=== PATIENT | male | born 1950 | race Caucasian/White ===

== ENCOUNTER 2016-09-18 20:38 | Inpatient (IN) | payer OTHER, MEDICARE ==
[~2016-09-18] VITALS: Ht 152.4 cm; Wt 85.9 kg
[~2016-09-18 20:38] MED LIST: ACCU-CHEK; ADULT LOW DOSE81 M1 PO; AMLODIPINE BES2.5 MG PO; AMLODIPINE BESY10 MG PO; AMLODIPINE BESYL5 MG PO; ASPIR 8181 M1 PO; ASPIR-LOW81 MG PO; ASPIR-TRIN325 M1 PO; ASPIRIN81 M2 PO; ATARAX,VISTARIL50 MG PO; ATORVASTATIN CA80 MG PO; BAYER ASPIRIN325 M1 PO; BAYER CHEWABLE81 MG PO; BREO ELLIPTA I1 EACH IH; CILOSTAZOL50 MG PO; CLEOCIN150 MG PO; CLEOCIN300 MG PO; CLINDAMYCIN HC300 MG PO; CLOPIDOGREL75 MG PO; COLACE100 MG PO; COMBIVENT200 INHALA IH; DOXYCYCLINE HY100 M1 PO; DULCOLAX5 MG PO; Diabeta,Micronase PO; ENDOCET 5-3251 EACH PO; FENOFIBRATE134 M1; FENOFIBRATE134 M1 PO; FENOFIBRATE134 MG PO; FEROSUL325 MG PO; FERROUS GLUCON240 MG PO; FISH OIL 1,0001 EAC7 PO; FISH OIL 1,2001 EAC4 PO; FISH OIL 1,2001 EAC5 PO; FISH OIL CONC1 EACH PO; FISH OIL300 MG PO; FISH OIL500 MG PO; FLEXERIL10 MG PO; GLIPIZIDE XL5 MG PO; GLIPIZIDE5 MG PO; GLUCOPHAGE1000 M1 PO; GLUCOPHAGE1000 MG PO; GLUCOTROL XL2.5 MG PO; GLUCOTROL5 MG PO; HUMALOG100 UNIT/1 SC; HUMULIN N100 UNITS/ SC; HUMULIN N300 UNIT/3 SC; HYDROCODON-ACE1 EAC7 PO; IMDUR30 MG PO; IMDUR60 MG PO; IRON256 MG PO; IRON325 M1 PO; IRON325 MG PO; ISOSORBIDE; ISOSORBIDE MONO30 MG PO; ISOSORBIDE MONO60 MG PO; Imdur PO; JANUVIA100 MG PO; JANUVIA25 M1 PO; KENALOG,ARISTOC80 G1 TP; LANTUS 3 M100 UNITS/ SC; LANTUS 3 M100 UNITS1 SC; LANTUS100 UNIT/1 SQ; LASIX20 MG PO; LEVEMIR FL100 UNIT/1 SC; LEVEMIR FL100 UNITS/ SC; LEVEMIR100 UNIT/2 SC; LEVOFLOXACIN750 MG PO; LEVOTHYROXINE75 MCG PO; LIPITOR80 MG PO; LISINOPRIL10 MG; LISINOPRIL10 MG PO; LISINOPRIL2.5 MG PO; LISINOPRIL5 MG PO; LO-DOSE ASPIRIN81 M1 PO; LOFIBRA134 MG PO; LOPRESSOR25 MG PO; LOPRESSOR50 MG PO; LORTAB 5-325 M1 EACH PO; LOSARTAN POTAS100 MG PO; LOSARTAN POTASS50 MG PO; LOW DOSE ASPIRI81 M2 PO; Levaquin PO; Lopressor PO; MAG-OXIDE400 MG PO; MAGNESIUM250 M1 PO; MAGOX 400400 MG PO; MECLIZINE HCL12.5 M1 PO; MEDROL DOSEPAK4 MG PO; METFORMIN HCL1000 M1; METFORMIN HCL1000 MG PO; METOPROLOL SUCC25 MG; METOPROLOL SUCC25 MG PO; METOPROLOL SUCC50 MG PO; METOPROLOL TART25 MG PO; METOPROLOL TART50 MG PO; Motrin PO; NITROSTAT,NITR0.4 M1 SL; NITROSTAT0.4 MG SL; NOHOMEMEDS; NORCO 5/3251 TABLET PO; NOVOLIN N100 UNIT/1 SQ; NOVOLIN N100 UNITS/ SC; NOVOLIN R (UNI1 UNIT SC; NOVOLIN,HU100 UNITS1 SC; NOVOLOG PE100 UNITS/ SC; Nitrostat,NitroQuick SL; PANTOPRAZOLE SO40 MG PO; PERCOCET 5/31 TABLET PO; PERFECT IRON25 MG PO; PLAVIX75 MG PO; PREDNISONE10 MG PO; PREDNISONE20 MG PO; PRINIVIL10 MG PO; PROAIR HFA8.5 GM IH; PROTONIX40 MG PO; Plavix PO; PriLOSEC PO; RANEXA500 MG PO; RAYOS2 MG PO; SIMVASTATIN20 M1 PO; SIMVASTATIN20 MG; SIMVASTATIN20 MG PO; SIMVASTATIN40 MG PO; SOFTCLIX1 EAC2; SPIRIVA1 INHALATI; SPIRIVA1 INHALATI IH; THERAGRAN1 TABLET PO; TRAMADOL HCL50 MG PO; TRILIPIX135 MG PO; TUDORZA PRESS400 MCG IH; Tylenol Regular Stre PO; VENTOLIN HFA18 GM IH; VITAMIN D-32000 UNI2 PO; VITAMIN D1000 INTUN PO; VITAMIN D31000 UNI2 PO; VITAMIN D31000 UNIT PO; ZESTRIL,PRINIVI10 MG PO; ZESTRIL10 MG PO; ZESTRIL2.5 MG PO; ZOCOR20 MG PO; ZOCOR40 MG PO; ZOFRAN4 MG PO; ZYVOX600 MG PO; Zestril,Prinivil PO; Zocor PO
[2016-09-18 22:42] LABS: HEMATOCRIT 34.5 % (38.0-50.0); MCH 29.6 PG (29.0-34.0); MCHC 33.9 G/DL (30.0-36.0); MCV 87.3 FL (86-99); MEAN PLAT.VOLUME 9.9 uM^3 (9.0-12.4); PLATELET COUNT 310 K/uL (156-360); RBC DIS.WIDTH-CV 13.6 % (11.8-14.6); RBC DIS.WIDTH-SD 42.2 % (39-53); RED BLOOD COUNT 3.95 M/uL (4.00-5.50)
[2016-09-18 22:47] LABS: CHLORIDE 101 mEq/L (99-109); POTASSIUM 4.2 mEq/L (3.7-5.4); SODIUM 136 mEq/L (136-147)
[2016-09-18 22:49] LABS: GLUCOSE 309 mg/dL (70-99)
[2016-09-18 22:50] LABS: WHITE BLOOD COUNT 14.4 K/uL (4.1-10.2)
[2016-09-18 22:51] LABS: ANION GAP 11 MEQ/L (2-14)
[2016-09-18 22:53] LABS: GFR ESTIMATE (CALCULATED) 50 mL/min/
[2016-09-18 22:54] LABS: UREA NITROGEN (BUN) 19 mg/dL (9-23)
[2016-09-19 00:11] LABS: TOTAL BILIRUBIN 0.6 mg/dL (0.0-1.0)
[2016-09-19 00:12] LABS: ALKALINE PHOSPHATASE 24 IU/L (3-129)
[2016-09-19 00:14] LABS: TROP-I INTERPRETATION NEGATIVE; TROPONIN-I < 0.01 ng/mL (0.0-0.30)
[2016-09-19 00:15] LABS: DIRECT BILIRUBIN 0.2 mg/dL (0.0-0.3)
[2016-09-19 00:16] LABS: LIPASE 9 U/L (1.0-51.0)
[2016-09-19 00:25] LABS: INFLUENZA A VIRAL ANTIGEN NEGATIVE; INFLUENZA B VIRAL ANTIGEN NEGATIVE
[2016-09-19 16:00] VITALS: BP 95/55
[2016-09-19 17:10] VITALS: BP 120/72
[2016-09-19 23:06] VITALS: BP 121/56
[2016-09-20 02:02] VITALS: BP 110/56
[2016-09-20 02:58] LABS: BASE EXCESS 0.4 mEq/L (-3 to +3); BICARBONATE 24.6 mEq/L (22-26); CARBOXY HGB 1.2 % (0-5); MCH 29.6 PG (29.0-34.0); MCHC 33.9 G/DL (30.0-36.0); MCV 87.3 FL (86-99); METHEMOGLOBIN 0.9 % (0-1.5); PCO2 37 mm Hg (35-45); PLATELET COUNT 300 K/uL (156-360); PO2 335 mm Hg (80-100); RBC DIS.WIDTH-CV 13.6 % (11.8-14.6); RBC DIS.WIDTH-SD 42.1 % (39-53); RED BLOOD COUNT 3.78 M/uL (4.00-5.50); SITE LR; WHITE BLOOD COUNT 10.9 K/uL (4.1-10.2); pH 7.43 (7.35-7.45)
[2016-09-20 02:59] LABS: COMMENTS - BLOOD GASES A+C+; DEVICE NRBM; FI02 100 %
[2016-09-20 03:09] LABS: CHLORIDE 102 mEq/L (99-109); D-DIMER ELISA 0.32 mg/L FEU (< 0.57); POTASSIUM 4.2 mEq/L (3.7-5.4); SODIUM 135 mEq/L (136-147)
[2016-09-20 03:12] LABS: ANION GAP 14 MEQ/L (2-14)
[2016-09-20 03:15] LABS: GFR ESTIMATE (CALCULATED) 54 mL/min/
[2016-09-20 03:16] LABS: UREA NITROGEN (BUN) 19 mg/dL (9-23)
[2016-09-20 03:17] LABS: GLUCOSE 426 mg/dL (70-99)
[2016-09-20 03:19] LABS: TROP-I INTERPRETATION NEGATIVE; TROPONIN-I < 0.01 ng/mL (0.0-0.30)
[2016-09-20 08:14] LABS: POINT-OF-CARE METER ID UU14174216; POINT-OF-CARE USER ID NUTSLF44
[2016-09-20 09:21] LABS: TROP-I INTERPRETATION NEGATIVE; TROPONIN-I 0.06 ng/mL (0.0-0.30)
[2016-09-20 10:06] VITALS: BP 159/65
[2016-09-20 11:35] LABS: POINT-OF-CARE METER ID UU13113698; POINT-OF-CARE USER ID NUTSLF44
[2016-09-20 13:00] VITALS: BP 144/62
[2016-09-20 14:30] LABS: TROP-I INTERPRETATION NEGATIVE; TROPONIN-I 0.05 ng/mL (0.0-0.30)
[2016-09-20 15:38] VITALS: BP 131/61
[2016-09-20 16:58] LABS: POINT-OF-CARE METER ID UU13113698; POINT-OF-CARE USER ID NUTSLF44
[2016-09-20 20:00] VITALS: BP 138/65
[2016-09-20 21:24] LABS: POINT-OF-CARE METER ID UU13113698
[2016-09-20 23:31] LABS: TROP-I INTERPRETATION NEGATIVE; TROPONIN-I 0.03 ng/mL (0.0-0.30)
[2016-09-20 23:55] VITALS: BP 145/65
[2016-09-21 04:07] VITALS: BP 144/65
[2016-09-21 07:55] LABS: POINT-OF-CARE METER ID UU13113698
[2016-09-21 08:45] VITALS: BP 137/63
[2016-09-21 08:48] LABS: TROP-I INTERPRETATION NEGATIVE; TROPONIN-I 0.02 ng/mL (0.0-0.30)
[2016-09-21 11:34] LABS: POINT-OF-CARE METER ID UU13113698
[2016-09-21 12:38] VITALS: BP 116/56
[2016-09-21 16:26] LABS: POINT-OF-CARE METER ID UU13113698
[2016-09-21 16:45] VITALS: BP 133/64
[2016-09-21 20:50] VITALS: BP 154/65
[2016-09-21 21:00] LABS: POINT-OF-CARE METER ID UU14174216
[2016-09-22] VITALS (9 sets, daily range): BP systolic 117–165; BP diastolic 58–98
[2016-09-22 16:08] LABS: POINT-OF-CARE METER ID UU14174216
[2016-09-22 21:50] LABS: POINT-OF-CARE METER ID UU13113698
[2016-09-23 03:57] VITALS: BP 150/69
[2016-09-23 07:28] VITALS: BP 139/64
[2016-09-23 07:45] LABS: POINT-OF-CARE USER ID NUTSLF44
[2016-09-23] MEDS ORDERED: ZITHROMAX250 MG PO (09:27)
[2016-09-23] MEDS ORDERED: PREDNISONE10 MG PO (09:27)
[2016-09-23] MEDS ORDERED: CEFTIN500 MG PO (09:27)
[2016-09-23 11:21] LABS: POINT-OF-CARE USER ID NUTSLF44
[2016-09-23 11:26] VITALS: BP 121/64
== END 2016-09-23 13:17 | disposition home or self-care (01) | DRG 190 ==
LOC: EME 20:38 → 4EAST 09-19 02:37 → 5EAST 09-19 02:37 → 4EAST 09-19 02:37 → EDOF 09-19 02:37 → 5EAST 09-19 17:01 → 4EAST 09-20 03:06
PROVIDERS: Emergency Medicine; Internal Medicine; Internal Medicine Cardiovascular Disease
DX: J44.0 Chronic obstructive pulmonary disease with (acute) lower respiratory infection (principal); J18.9 Pneumonia, unspecified organism; J44.1 Chronic obstructive pulmonary disease with (acute) exacerbation; I69.351 Hemiplegia and hemiparesis following cerebral infarction affecting right dominant side; E11.9 Type 2 diabetes mellitus without complications; I10 Essential (primary) hypertension; E78.5 Hyperlipidemia, unspecified; I25.118 Atherosclerotic heart disease of native coronary artery with other forms of angina pectoris; I73.9 Peripheral vascular disease, unspecified; I35.0 Nonrheumatic aortic (valve) stenosis; Z88.1 Allergy status to other antibiotic agents; Z95.5 Presence of coronary angioplasty implant and graft; Z87.891 Personal history of nicotine dependence; Z79.02 Long term (current) use of antithrombotics/antiplatelets; Z79.82 Long term (current) use of aspirin
CPT/HCPCS: 36600; 71010; 71020; 74176; 80048; 80076; 82803; 82948; 83605; 83690; 83880; 84484; 85027; 85379; 87040; 87502; 93005; 94640; 94640 76; 94799; 99202; 99281; 99285; J0456; J0696; J1650; J1815; J1956; J2270; J2405; J2920; J2930; J7030; J7050

== ENCOUNTER 2016-10-27 18:41 | Inpatient (IN) | payer OTHER, MEDICARE ==
[~2016-10-27] VITALS: Ht 152.4 cm; Wt 82.5 kg
[~2016-10-27 18:41] MED LIST changes: +CEFTIN500 MG PO; +ZITHROMAX250 MG PO
[2016-10-27 19:58] LABS: HEMATOCRIT 36.9 % (38.0-50.0); MCH 29.6 PG (29.0-34.0); MCHC 33.1 G/DL (30.0-36.0); MCV 89.6 FL (86-99); MEAN PLAT.VOLUME 9.5 uM^3 (9.0-12.4); PLATELET COUNT 393 K/uL (156-360); RBC DIS.WIDTH-CV 13.8 % (11.8-14.6); RBC DIS.WIDTH-SD 44.1 % (39-53); RED BLOOD COUNT 4.12 M/uL (4.00-5.50); WHITE BLOOD COUNT 7.9 K/uL (4.1-10.2)
[2016-10-27 20:08] LABS: CHLORIDE 103 mEq/L (99-109); POTASSIUM 4.5 mEq/L (3.7-5.4); SODIUM 140 mEq/L (136-147)
[2016-10-27 20:10] LABS: GLUCOSE 315 mg/dL (70-99)
[2016-10-27 20:12] LABS: ANION GAP 11 MEQ/L (2-14)
[2016-10-27 20:14] LABS: GFR ESTIMATE (CALCULATED) 59 mL/min/
[2016-10-27 20:15] LABS: UREA NITROGEN (BUN) 16 mg/dL (9-23)
[2016-10-27 20:20] LABS: TROP-I INTERPRETATION NEGATIVE; TROPONIN-I 0.02 ng/mL (0.0-0.30)
[2016-10-28 01:02] VITALS: BP 144/60
[2016-10-28 04:43] VITALS: BP 107/59
[2016-10-28 06:10] LABS: MCH 29.3 PG (29.0-34.0); MCHC 32.7 G/DL (30.0-36.0); MCV 89.7 FL (86-99); MEAN PLAT.VOLUME 9.9 uM^3 (9.0-12.4); PLATELET COUNT 342 K/uL (156-360); RBC DIS.WIDTH-CV 14.1 % (11.8-14.6); RED BLOOD COUNT 3.68 M/uL (4.00-5.50); WHITE BLOOD COUNT 7.3 K/uL (4.1-10.2)
[2016-10-28 06:49] LABS: ALKALINE PHOSPHATASE 17 IU/L (3-129); ANION GAP 13 MEQ/L (2-14); CHLORIDE 101 MEQ/L (99-109); GFR ESTIMATE (CALCULATED) > 59 mL/min/; POTASSIUM 4.7 MEQ/L (3.7-5.4); SAMPLE HEMOLYSIS CHECK 0; SAMPLE ICTERIC CHECK 0; SAMPLE LIPEMIA CHECK 0; SODIUM 136 MEQ/L (136-147); TOTAL BILIRUBIN 0.3 MG/DL (0.0-1.0); UREA NITROGEN (BUN) 19 mg/dL (9-23)
[2016-10-28 06:52] LABS: GLUCOSE 430 mg/dL (70-99)
[2016-10-28 07:23] VITALS: BP 116/56
[2016-10-28 08:24] LABS: POINT-OF-CARE METER ID UU13113831
[2016-10-28 11:53] VITALS: BP 116/58
[2016-10-28 12:48] LABS: POINT-OF-CARE METER ID UU13113831
[2016-10-28 16:10] VITALS: BP 112/57
[2016-10-28 17:35] LABS: POINT-OF-CARE METER ID UU13113831
[2016-10-28 21:00] VITALS: BP 113/78; BP 13/78
[2016-10-28 21:25] LABS: POINT-OF-CARE METER ID UU13113700
[2016-10-29] VITALS (7 sets, daily range): BP systolic 100–136; BP diastolic 51–68
[2016-10-29 12:37] LABS: HEMATOCRIT 33.7 % (38.0-50.0); MCH 29.8 PG (29.0-34.0); MCHC 33.8 G/DL (30.0-36.0); MEAN PLAT.VOLUME 9.8 uM^3 (9.0-12.4); PLATELET COUNT 417 K/uL (156-360); RBC DIS.WIDTH-SD 44.1 % (39-53); RED BLOOD COUNT 3.83 M/uL (4.00-5.50); WHITE BLOOD COUNT 18.5 K/uL (4.1-10.2)
[2016-10-29 12:46] LABS: CHLORIDE 101 mEq/L (99-109); D-DIMER ELISA 0.23 mg/L FEU (< 0.57); POTASSIUM 4.7 mEq/L (3.7-5.4); SODIUM 138 mEq/L (136-147)
[2016-10-29 12:48] LABS: GLUCOSE 296 mg/dL (70-99)
[2016-10-29 12:49] LABS: ANION GAP 14 MEQ/L (2-14)
[2016-10-29 12:52] LABS: GFR ESTIMATE (CALCULATED) 46 mL/min/
[2016-10-29 12:53] LABS: UREA NITROGEN (BUN) 30 mg/dL (9-23)
[2016-10-29 17:13] LABS: POINT-OF-CARE METER ID UU13113700
[2016-10-29 22:22] LABS: POINT-OF-CARE METER ID UU14162513
[2016-10-30 04:29] VITALS: BP 123/53
[2016-10-30 06:54] LABS: EOSINOPHIL (%) 0 % (0-5); HEMATOCRIT 32.7 % (38.0-50.0); IMMATURE GRANULOCYTE (%) 0.8 % (0.0-0.7); IMMATURE GRANULOCYTE COUNT 0.1 K/uL; LYMPHOCYTE COUNT 1.2 K/uL (1.0-2.8); MCH 29.8 PG (29.0-34.0); MCHC 33.3 G/DL (30.0-36.0); MCV 89.3 FL (86-99); MEAN PLAT.VOLUME 10.2 uM^3 (9.0-12.4); MONOCYTE (%) 9.4 % (3-12); MONOCYTE COUNT 1.3 K/uL (0-0.8); NEUTROPHIL (%) 81.1 % (45-76); NEUTROPHIL COUNT 11.5 K/uL (1.8-6.4); PLATELET COUNT 345 K/uL (156-360); RBC DIS.WIDTH-CV 14.3 % (11.8-14.6); RBC DIS.WIDTH-SD 46.9 % (39-53); RED BLOOD COUNT 3.66 M/uL (4.00-5.50); WHITE BLOOD COUNT 14.1 K/uL (4.1-10.2)
[2016-10-30 07:17] LABS: Estimated Average Glucose 174 mg/dL (70-123); HEMOGLOBIN A1c (GLYCOHEMOGLOB) 7.7 % HGB (Below 5.7)
[2016-10-30 07:34] LABS: ALKALINE PHOSPHATASE 16 IU/L (3-129); ANION GAP 8 MEQ/L (2-14); CHLORIDE 99 MEQ/L (99-109); GFR ESTIMATE (CALCULATED) > 59 mL/min/; GLUCOSE 172 mg/dL (70-99); POTASSIUM 4.2 MEQ/L (3.7-5.4); SAMPLE HEMOLYSIS CHECK 0; SAMPLE ICTERIC CHECK 0; SAMPLE LIPEMIA CHECK 0; SODIUM 137 MEQ/L (136-147); TOTAL BILIRUBIN 0.3 MG/DL (0.0-1.0); UREA NITROGEN (BUN) 27 mg/dL (9-23)
[2016-10-30 07:55] VITALS: BP 113/56
[2016-10-30 08:37] LABS: POINT-OF-CARE METER ID UU13113700
[2016-10-30 12:10] VITALS: BP 99/56
[2016-10-30 12:15] LABS: POINT-OF-CARE METER ID UU13113831
[2016-10-30 16:13] VITALS: BP 121/59
[2016-10-30 19:43] VITALS: BP 138/89
[2016-10-30 21:31] LABS: POINT-OF-CARE METER ID UU13113831
[2016-10-30 23:20] VITALS: BP 131/62
[2016-10-31 03:33] VITALS: BP 137/65
[2016-10-31 04:40] LABS: POINT-OF-CARE METER ID UU14162513
[2016-10-31 08:38] LABS: POINT-OF-CARE METER ID UU13113700
[2016-10-31 09:32] VITALS: BP 139/65
[2016-10-31 11:22] VITALS: BP 112/56
[2016-10-31 11:54] LABS: POINT-OF-CARE METER ID UU13113700
[2016-10-31 16:20] VITALS: BP 167/69
[2016-10-31 20:13] VITALS: BP 120/62
[2016-11-01] VITALS (7 sets, daily range): BP systolic 106–141; BP diastolic 54–78
[2016-11-02 04:03] VITALS: BP 130/67
[2016-11-02 08:56] VITALS: BP 119/60
[2016-11-02 12:30] VITALS: BP 125/60
[2016-11-02] MEDS ORDERED: PREDNISONE10 MG PO (15:19)
[2016-11-02] MEDS ORDERED: LEVOFLOXACIN750 MG PO (15:19)
[2016-11-02 15:38] VITALS: BP 123/58
== END 2016-11-02 17:55 | disposition home or self-care (01) | DRG 190 ==
LOC: EME 18:41 → EDOF 23:32 → 5WEST 23:32 → EDOF 23:32 → 5WEST 10-28 00:42 → 2EAST 10-31 15:46
PROVIDERS: Hospitalist; Internal Medicine
DX: J44.1 Chronic obstructive pulmonary disease with (acute) exacerbation (principal); J96.01 Acute respiratory failure with hypoxia; J44.0 Chronic obstructive pulmonary disease with (acute) lower respiratory infection; J20.9 Acute bronchitis, unspecified; I69.351 Hemiplegia and hemiparesis following cerebral infarction affecting right dominant side; E78.00 Pure hypercholesterolemia, unspecified; I25.10 Atherosclerotic heart disease of native coronary artery without angina pectoris; I10 Essential (primary) hypertension; E11.65 Type 2 diabetes mellitus with hyperglycemia; K21.9 Gastro-esophageal reflux disease without esophagitis; E03.9 Hypothyroidism, unspecified; E78.5 Hyperlipidemia, unspecified; E66.9 Obesity, unspecified; M06.9 Rheumatoid arthritis, unspecified; J45.909 Unspecified asthma, uncomplicated; G89.29 Other chronic pain; Z95.5 Presence of coronary angioplasty implant and graft; Z79.02 Long term (current) use of antithrombotics/antiplatelets; Z79.82 Long term (current) use of aspirin; Z79.4 Long term (current) use of insulin; Z68.35 Body mass index [BMI] 35.0-35.9, adult; Z88.1 Allergy status to other antibiotic agents; Z87.891 Personal history of nicotine dependence; I25.2 Old myocardial infarction
CPT/HCPCS: 71020; 71275; 80048; 80053; 82948; 83036; 84484; 85025; 85027; 85379; 93005; 93971; 94010; 94640; 94640 76; 94644; 94799; 99202; 99281; 99285; G0378; J1100; J1644; J1815; J2930; J7512

== ENCOUNTER 2016-11-14 19:58 | Inpatient (IN) | payer OTHER, MEDICARE ==
[~2016-11-14] VITALS: Ht 152.4 cm; Wt 89.1 kg
[2016-11-14 20:59] LABS: MCH 29.5 PG (29.0-34.0); MCHC 33.9 G/DL (30.0-36.0); MCV 86.8 FL (86-99); MEAN PLAT.VOLUME 9.3 uM^3 (9.0-12.4); PLATELET COUNT 263 K/uL (156-360); RBC DIS.WIDTH-CV 13.7 % (11.8-14.6); RBC DIS.WIDTH-SD 42.6 % (39-53); RED BLOOD COUNT 4.38 M/uL (4.00-5.50); WHITE BLOOD COUNT 7.4 K/uL (4.1-10.2)
[2016-11-14 21:01] LABS: CHLORIDE 103 mEq/L (99-109); POTASSIUM 3.5 mEq/L (3.7-5.4); SODIUM 140 mEq/L (136-147)
[2016-11-14 21:03] LABS: GLUCOSE 77 mg/dL (70-99)
[2016-11-14 21:04] LABS: ANION GAP 10 MEQ/L (2-14)
[2016-11-14 21:07] LABS: GFR ESTIMATE (CALCULATED) > 59 mL/min/
[2016-11-14 21:08] LABS: UREA NITROGEN (BUN) 12 mg/dL (9-23)
[2016-11-14 21:14] LABS: TROP-I INTERPRETATION NEGATIVE; TROPONIN-I 0.02 ng/mL (0.0-0.30)
[2016-11-14 21:43] LABS: BASE EXCESS 1.5 mEq/L (-3 to +3); BICARBONATE 25.9 mEq/L (22-26); CARBOXY HGB 1.9 % (0-5); COMMENTS - BLOOD GASES A+C+; DEVICE NC; METHEMOGLOBIN 0.6 % (0-1.5); O2 FLOW 3 L/MIN; PCO2 39 mm Hg (35-45); PO2 100 mm Hg (80-100); SITE RR; TOTAL RESP RATE 20 resp/min; pH 7.43 (7.35-7.45)
[2016-11-14 23:12] VITALS: BP 133/72
[2016-11-15] VITALS (7 sets, daily range): BP systolic 119–177; BP diastolic 59–86
[2016-11-15 11:25] LABS: POINT-OF-CARE METER ID UU13113725
[2016-11-15 15:43] LABS: POINT-OF-CARE METER ID UU13113725
[2016-11-15 20:51] LABS: POINT-OF-CARE METER ID UU13113725
[2016-11-15 22:14] LABS: INTER. NORMALIZED RATIO 1.1; PROTHROMBIN TIME 11.3 (9.2-11.2); PTT 24.7 (25-32)
[2016-11-15 22:16] LABS: ANION GAP 11 MEQ/L (2-14); CHLORIDE 97 MEQ/L (99-109); SAMPLE HEMOLYSIS CHECK 0; SAMPLE ICTERIC CHECK 0; SAMPLE LIPEMIA CHECK 0; SODIUM 133 MEQ/L (136-147); TOTAL BILIRUBIN 0.4 MG/DL (0.0-1.0)
[2016-11-15 22:19] LABS: POTASSIUM 4.3 MEQ/L (3.7-5.4)
[2016-11-15 22:22] LABS: ALKALINE PHOSPHATASE 18 IU/L (3-129); GFR ESTIMATE (CALCULATED) 59 mL/min/
[2016-11-15 22:26] LABS: GLUCOSE 307 mg/dL (70-99); TROP-I INTERPRETATION NEGATIVE; UREA NITROGEN (BUN) 24 mg/dL (9-23)
[2016-11-15 22:36] LABS: D-DIMER ELISA 0.21 mg/L FEU (< 0.57)
[2016-11-16] VITALS (7 sets, daily range): BP systolic 117–166; BP diastolic 55–90
[2016-11-16 07:08] LABS: TROP-I INTERPRETATION NEGATIVE; TROPONIN-I 0.18 ng/mL (0.0-0.30)
[2016-11-16 08:00] LABS: POINT-OF-CARE METER ID UU13113781; POINT-OF-CARE USER ID NUTSLF44
[2016-11-16 11:38] LABS: POINT-OF-CARE METER ID UU13113698
[2016-11-16 11:47] LABS: POINT-OF-CARE METER ID UU13113725
[2016-11-16 17:05] LABS: POINT-OF-CARE METER ID UU13113807
[2016-11-16 20:56] LABS: POINT-OF-CARE METER ID UU13113807
[2016-11-17] VITALS: BP 153/73
[2016-11-17 03:51] VITALS: BP 158/73
[2016-11-17 08:10] VITALS: BP 146/69
[2016-11-17 08:31] LABS: POINT-OF-CARE METER ID UU13113807; POINT-OF-CARE USER ID 606021404
[2016-11-17 12:07] VITALS: BP 131/57
[2016-11-17 12:20] LABS: POINT-OF-CARE METER ID UU13113807; POINT-OF-CARE USER ID 606021404
[2016-11-17 15:23] VITALS: BP 103/59
[2016-11-17 16:30] LABS: POINT-OF-CARE METER ID UU13113807; POINT-OF-CARE USER ID 606021404
[2016-11-17 20:00] VITALS: BP 159/70
[2016-11-17 21:45] LABS: POINT-OF-CARE METER ID UU13113807
[2016-11-18] VITALS (9 sets, daily range): BP systolic 119–183; BP diastolic 59–87
[2016-11-18 08:22] LABS: POINT-OF-CARE METER ID UU13113807
[2016-11-18 11:47] LABS: POINT-OF-CARE METER ID UU13113807
[2016-11-18 17:15] LABS: POINT-OF-CARE METER ID UU13113807
[2016-11-18 21:24] LABS: POINT-OF-CARE METER ID UU13113807; POINT-OF-CARE USER ID 608261316
[2016-11-18 23:07] LABS: TROP-I INTERPRETATION NEGATIVE; TROPONIN-I 0.07 ng/mL (0.0-0.30)
[2016-11-19 04:35] VITALS: BP 136/65
[2016-11-19 06:44] LABS: TROP-I INTERPRETATION NEGATIVE; TROPONIN-I 0.09 ng/mL (0.0-0.30)
[2016-11-19 07:54] LABS: POINT-OF-CARE METER ID UU13113807
[2016-11-19 08:33] VITALS: BP 133/70
[2016-11-19 12:04] LABS: POINT-OF-CARE METER ID UU14149398
[2016-11-19 12:41] VITALS: BP 122/58
[2016-11-19 14:57] LABS: TROP-I INTERPRETATION NEGATIVE; TROPONIN-I 0.11 ng/mL (0.0-0.30)
[2016-11-19 15:54] LABS: POINT-OF-CARE METER ID UU13113807
[2016-11-19 16:33] VITALS: BP 110/58
[2016-11-19 20:00] VITALS: BP 136/71
[2016-11-19 22:09] LABS: POINT-OF-CARE METER ID UU13113725
[2016-11-19 23:59] VITALS: BP 140/65
[2016-11-20 07:44] VITALS: BP 140/80
[2016-11-20] MEDS ORDERED: IMDUR60 MG PO (15:45)
[2016-11-20] MEDS ORDERED: IMDUR30 MG PO (15:45)
== END 2016-11-20 17:39 | disposition home or self-care (01) | DRG 191 ==
LOC: EME → EDBD 19:58 → EME 19:58 → 4EAST 22:08 → 4SOUTH 22:08 → EDOF 22:08 → 5EAST 23:07 → 4EAST 11-16 00:14 → 4SOUTH 11-16 16:24 → 5EAST 11-19 19:33
PROVIDERS: Emergency Medicine; Hospitalist; Internal Medicine
DX: J44.1 Chronic obstructive pulmonary disease with (acute) exacerbation (principal); I25.10 Atherosclerotic heart disease of native coronary artery without angina pectoris; I10 Essential (primary) hypertension; E11.9 Type 2 diabetes mellitus without complications; E78.5 Hyperlipidemia, unspecified; I69.951 Hemiplegia and hemiparesis following unspecified cerebrovascular disease affecting right dominant side; E03.9 Hypothyroidism, unspecified; R60.9 Edema, unspecified; I73.9 Peripheral vascular disease, unspecified; E66.9 Obesity, unspecified; Z87.891 Personal history of nicotine dependence; Z95.5 Presence of coronary angioplasty implant and graft; Z68.34 Body mass index [BMI] 34.0-34.9, adult
CPT/HCPCS: 36415; 36600; 71020; 80048; 80053; 82803; 82948; 83880; 84100; 84484; 85025; 85027; 85379; 85610; 85730; 93005; 94640; 94640 76; 94760; 94799; 99202; 99281; 99285; J0696; J1650; J1815; J1940; J2270; J2930; J3475; J7050; J7512; J7644

== ENCOUNTER 2016-12-29 11:50 | Emergency (ER) | payer OTHER, MEDICARE ==
[~2016-12-29] VITALS: Ht 152.4 cm; Wt 81.4 kg
[2016-12-29 13:18] VITALS: BP 123/74
== END 2016-12-29 14:07 | disposition home or self-care (01) ==
LOC: EME 11:50
DX: J98.01 Acute bronchospasm (principal); J44.9 Chronic obstructive pulmonary disease, unspecified; J45.909 Unspecified asthma, uncomplicated; E11.9 Type 2 diabetes mellitus without complications; E78.5 Hyperlipidemia, unspecified; I10 Essential (primary) hypertension; I25.2 Old myocardial infarction; Z86.73 Personal history of transient ischemic attack (TIA), and cerebral infarction without residual deficits; M06.9 Rheumatoid arthritis, unspecified; Z98.61 Coronary angioplasty status; Z79.4 Long term (current) use of insulin; Z79.82 Long term (current) use of aspirin; Z87.891 Personal history of nicotine dependence
CPT/HCPCS: 94640; 94640 76; 99281; 99284; J1100; J7644

== ENCOUNTER 2017-01-06 10:26 | Emergency (ER) | payer OTHER, MEDICARE ==
[~2017-01-06] VITALS: Ht 152.4 cm; Wt 86.6 kg
[2017-01-06 12:13] LABS: BASOPHIL COUNT 0.1 K/uL (0-0.1); EOSINOPHIL (%) 2.9 % (0-5); EOSINOPHIL COUNT 0.4 K/uL (0-0.3); HEMATOCRIT 34.5 % (38.0-50.0); IMMATURE GRANULOCYTE (%) 0.5 % (0.0-0.7); IMMATURE GRANULOCYTE COUNT 0.1 K/uL; INSTRUMENT ABS NEUTROPHIL CT 10.2 K/uL; LYMPHOCYTE COUNT 0.9 K/uL (1.0-2.8); MCH 29.6 PG (29.0-34.0); MCHC 32.8 G/DL (30.0-36.0); MCV 90.3 FL (86-99); MEAN PLAT.VOLUME 9.9 uM^3 (9.0-12.4); MONOCYTE (%) 11.1 % (3-12); MONOCYTE COUNT 1.5 K/uL (0-0.8); NEUTROPHIL (%) 78.3 % (45-76); NEUTROPHIL COUNT 10.2 K/uL (1.8-6.4); PLATELET COUNT 302 K/uL (156-360); RBC DIS.WIDTH-SD 46.6 % (39-53); RED BLOOD COUNT 3.82 M/uL (4.00-5.50)
[2017-01-06 12:25] LABS: CHLORIDE 104 mEq/L (99-109); POTASSIUM 4.3 mEq/L (3.7-5.4); SODIUM 139 mEq/L (136-147)
[2017-01-06 12:26] LABS: GLUCOSE 120 mg/dL (70-99)
[2017-01-06 12:28] LABS: ANION GAP 10 MEQ/L (2-14)
[2017-01-06 12:30] LABS: GFR ESTIMATE (CALCULATED) > 59 mL/min/
[2017-01-06 12:31] LABS: UREA NITROGEN (BUN) 14 mg/dL (9-23)
[2017-01-06 12:35] LABS: INTER. NORMALIZED RATIO 1.1; PROTHROMBIN TIME 11.6 (9.2-11.2)
[2017-01-06] MEDS ORDERED: CLEOCIN300 MG PO (12:46)
[2017-01-06 13:04] VITALS: BP 126/78
[2017-01-08] MEDS ORDERED: LASIX20 MG PO (22:44)
[2017-01-08] MEDS ORDERED: IMDUR30 MG PO (22:49)
[2017-01-08] MEDS ORDERED: K-DUR20 MEQ PO (22:50)
== END 2017-01-06 13:08 | disposition home or self-care (01) ==
LOC: EME 10:26
PROVIDERS: Emergency Medicine
DX: L03.115 Cellulitis of right lower limb (principal); R60.0 Localized edema; E11.9 Type 2 diabetes mellitus without complications; I25.2 Old myocardial infarction; E78.5 Hyperlipidemia, unspecified; I10 Essential (primary) hypertension; Z86.73 Personal history of transient ischemic attack (TIA), and cerebral infarction without residual deficits; Z88.1 Allergy status to other antibiotic agents; Z88.2 Allergy status to sulfonamides; Z87.891 Personal history of nicotine dependence
CPT/HCPCS: 80048; 85025; 85610; 93971; 99281; 99285

== ENCOUNTER 2017-04-02 19:21 | Observation (INO) | payer OTHER, MEDICARE ==
[~2017-04-02] VITALS: Ht 152.4 cm; Wt 83.3 kg
[~2017-04-02 19:21] MED LIST changes: +AUGMENTIN500 MG PO; +K-DUR20 MEQ PO
[2017-04-02 20:11] LABS: HEMATOCRIT 38.8 % (38.0-50.0); MCHC 33.8 G/DL (30.0-36.0); MEAN PLAT.VOLUME 10.2 uM^3 (9.0-12.4); PLATELET COUNT 332 K/uL (156-360); RBC DIS.WIDTH-CV 14.3 % (11.8-14.6); RBC DIS.WIDTH-SD 45.1 % (39-53); RED BLOOD COUNT 4.51 M/uL (4.00-5.50); WHITE BLOOD COUNT 8.3 K/uL (4.1-10.2)
[2017-04-02 20:20] LABS: CHLORIDE 103 mEq/L (99-109); SODIUM 138 mEq/L (136-147)
[2017-04-02 20:22] LABS: GLUCOSE 222 mg/dL (70-99)
[2017-04-02 20:23] LABS: ANION GAP 13 MEQ/L (2-14)
[2017-04-02 20:26] LABS: GFR ESTIMATE (CALCULATED) 59 mL/min/
[2017-04-02 20:27] LABS: UREA NITROGEN (BUN) 18 mg/dL (9-23)
[2017-04-02 20:32] LABS: TROP-I INTERPRETATION NEGATIVE; TROPONIN-I < 0.01 ng/mL (0.0-0.30)
[2017-04-02] MEDS ORDERED: NOVOLIN N100 UNITS/ SC ×2 (22:44→22:45)
[2017-04-02] MEDS ORDERED: RANEXA1000 MG PO (22:47)
[2017-04-02] MEDS ORDERED: NITROSTAT0.4 MG SL (22:47)
[2017-04-02 23:18] VITALS: BP 166/72
[2017-04-03 01:05] LABS: POINT-OF-CARE METER ID UU13113831
[2017-04-03 03:05] LABS: TROP-I INTERPRETATION NEGATIVE; TROPONIN-I < 0.01 ng/mL (0.0-0.30)
[2017-04-03 03:24] LABS: HDL CHOLESTEROL 31 MG/DL (Desirable>=40); LDL CHOLESTEROL 58 mg/dL (Desirable<100); NON-HDL CHOLESTEROL 92 mg/dL (Desirable<160); TOTAL CHOLESTEROL 123 mg/dL (Desirable<200); TRIGLYCERIDES 171 MG/DL (Normal: <150)
[2017-04-03 04:26] VITALS: BP 122/56
[2017-04-03 09:04] VITALS: BP 148/67
[2017-04-03 09:21] LABS: POINT-OF-CARE METER ID UU13113831
[2017-04-03 10:19] LABS: TROP-I INTERPRETATION NEGATIVE; TROPONIN-I 0.01 ng/mL (0.0-0.30)
[2017-04-03 11:59] VITALS: BP 86/50
[2017-04-03 12:33] LABS: POINT-OF-CARE METER ID UU13113700
[2017-04-03 12:53] VITALS: BP 116/55
== END 2017-04-03 15:15 | disposition home or self-care (01) ==
LOC: EME → EDBD 19:21 → EME 19:21 → EDOF 22:07 → 5WEST 23:11
PROVIDERS: Hospitalist; Physician Assistant Medical; Student in an Organized Health Care Education/Training Program
DX: R07.89 Other chest pain (principal); I25.10 Atherosclerotic heart disease of native coronary artery without angina pectoris; I25.82 Chronic total occlusion of coronary artery; Z95.5 Presence of coronary angioplasty implant and graft; I10 Essential (primary) hypertension; I25.2 Old myocardial infarction; S06.0X9A Concussion with loss of consciousness of unspecified duration, initial encounter; M25.461 Effusion, right knee; E11.65 Type 2 diabetes mellitus with hyperglycemia; J44.9 Chronic obstructive pulmonary disease, unspecified; E78.5 Hyperlipidemia, unspecified; Z87.891 Personal history of nicotine dependence; W01.198A Fall on same level from slipping, tripping and stumbling with subsequent striking against other object, initial encounter; Y93.89 Activity, other specified; Z79.4 Long term (current) use of insulin; I69.951 Hemiplegia and hemiparesis following unspecified cerebrovascular disease affecting right dominant side; I69.954 Hemiplegia and hemiparesis following unspecified cerebrovascular disease affecting left non-dominant side; Z79.82 Long term (current) use of aspirin; E66.9 Obesity, unspecified; Z68.35 Body mass index [BMI] 35.0-35.9, adult
CPT/HCPCS: 70450; 71020; 72125; 73564; 73700; 80048; 80061; 82948; 84484; 85027; 93005; 94640; 94640 76; 94760; 99202; 99281; 99285; G0378; G8978 GP CJ; G8979 GP CI; J1650; J1815

== ENCOUNTER → 2017-04-09 | Outpatient (CLI) | payer MEDICARE ==
[~2017-04-09] MED LIST changes: +RANEXA1000 MG PO
== END | disposition home or self-care (01) ==
LOC: CDC 09:42
DX: R94.31 Abnormal electrocardiogram [ECG] [EKG] (principal)
CPT/HCPCS: 93000

== ENCOUNTER 2017-05-07 18:37 | Emergency (ER) | payer OTHER, MEDICARE ==
[~2017-05-07] VITALS: Ht 162.6 cm; Wt 81.8 kg
[2017-05-07 20:07] VITALS: BP 125/69
== END 2017-05-07 20:07 | disposition home or self-care (01) ==
LOC: EME 18:37
PROC: 3E0234Z Introduction of Serum, Toxoid and Vaccine into Muscle, Percutaneous Approach (ICD-10-PCS; principal; 2017-05-07)
DX: S80.811A Abrasion, right lower leg, initial encounter (principal); W49.09XA Other specified item causing external constriction, initial encounter; Z87.891 Personal history of nicotine dependence; Z79.82 Long term (current) use of aspirin; Z79.4 Long term (current) use of insulin
CPT/HCPCS: 99281; 99285

== ENCOUNTER 2017-05-12 16:45 | Emergency (ER) | payer OTHER, MEDICARE ==
[~2017-05-12] VITALS: Ht 152.4 cm; Wt 82.0 kg
[2017-05-12 18:28] VITALS: BP 94/71
== END 2017-05-12 18:49 | disposition home or self-care (01) ==
LOC: EME 16:45
DX: S91.301A Unspecified open wound, right foot, initial encounter (principal); W45.8XXA Other foreign body or object entering through skin, initial encounter; E11.9 Type 2 diabetes mellitus without complications; J44.9 Chronic obstructive pulmonary disease, unspecified; E78.5 Hyperlipidemia, unspecified; I10 Essential (primary) hypertension; I69.951 Hemiplegia and hemiparesis following unspecified cerebrovascular disease affecting right dominant side; Z87.891 Personal history of nicotine dependence; Z98.61 Coronary angioplasty status
CPT/HCPCS: 99281; 99284

== ENCOUNTER 2017-05-14 14:06 | Inpatient (IN) | payer OTHER, MEDICARE ==
[~2017-05-14] VITALS: Ht 152.4 cm; Wt 83.1 kg
[2017-05-14 15:00] LABS: EOSINOPHIL (%) 3.9 % (0-5); EOSINOPHIL COUNT 0.3 K/uL (0-0.3); HEMATOCRIT 33.2 % (38.0-50.0); IMMATURE GRANULOCYTE (%) 0.5 % (0.0-0.7); INSTRUMENT ABS NEUTROPHIL CT 5.6 K/uL; LYMPHOCYTE COUNT 1.2 K/uL (1.0-2.8); MCH 29.6 PG (29.0-34.0); MCHC 33.1 G/DL (30.0-36.0); MCV 89.2 FL (86-99); MEAN PLAT.VOLUME 9.6 uM^3 (9.0-12.4); MONOCYTE (%) 8.8 % (3-12); MONOCYTE COUNT 0.7 K/uL (0-0.8); NEUTROPHIL (%) 70.7 % (45-76); NEUTROPHIL COUNT 5.6 K/uL (1.8-6.4); PLATELET COUNT 349 K/uL (156-360); RBC DIS.WIDTH-CV 14.1 % (11.8-14.6); RBC DIS.WIDTH-SD 45.8 % (39-53); RED BLOOD COUNT 3.72 M/uL (4.00-5.50)
[2017-05-14 15:09] LABS: CHLORIDE 102 mEq/L (99-109); POTASSIUM 4.5 mEq/L (3.7-5.4); SODIUM 136 mEq/L (136-147)
[2017-05-14 15:10] LABS: GLUCOSE 57 mg/dL (70-99)
[2017-05-14 15:12] LABS: ANION GAP 12 MEQ/L (2-14)
[2017-05-14 15:14] LABS: GFR ESTIMATE (CALCULATED) 43 mL/min/
[2017-05-14 15:15] LABS: UREA NITROGEN (BUN) 23 mg/dL (9-23)
[2017-05-14 18:34] LABS: ADD MIUA? YES; BILIRUBIN NEGATIVE; BLOOD NEGATIVE; COLOR AMBER ((YELLOW)); GLUCOSE (STRIP) NEGATIVE; KETONES NEGATIVE; LEUKOCYTES NEGATIVE; NITRITE NEGATIVE; PROTEIN (STRIP) 30; SPECIFIC GRAVITY 1.018 (1.000-1.030)
[2017-05-14 18:42] LABS: BACTERIA RARE /HPF; EPITHELIAL CELLS RARE /HPF; MUCUS NONE SEEN /LPF; RED BLOOD CELLS 0-5 /HPF (0-5); UCUL ADDED? NO; WHITE BLOOD CELLS 0-5 /HPF (0-5)
[2017-05-14 19:05] LABS: CREATININE 1.7 mg/dL (0.6-1.3); POTASSIUM 4.2 mEq/L (3.7-5.4)
[2017-05-14] MEDS ORDERED: XARELTO15 MG PO (20:07)
[2017-05-14] MEDS ORDERED: DOXAZOSIN MESYLA2 MG PO (20:08)
[2017-05-14] MEDS ORDERED: PERCOCET 5/31 TABLET PO (20:09)
[2017-05-14 21:30] VITALS: BP 138/54; BP 141/67; BP 142/66
[2017-05-14 22:24] LABS: TROP-I INTERPRETATION NEGATIVE; TROPONIN-I 0.01 ng/mL (0.0-0.30)
[2017-05-14 22:58] LABS: POINT-OF-CARE METER ID UU13113700
[2017-05-14 23:38] VITALS: BP 152/69
[2017-05-15 03:47] VITALS: BP 113/60
[2017-05-15 03:47] LABS: EOSINOPHIL (%) 5.6 % (0-5); EOSINOPHIL COUNT 0.4 K/uL (0-0.3); HEMATOCRIT 29.5 % (38.0-50.0); IMMATURE GRANULOCYTE (%) 0.4 % (0.0-0.7); LYMPHOCYTE COUNT 1.7 K/uL (1.0-2.8); MCH 29.7 PG (29.0-34.0); MCHC 32.9 G/DL (30.0-36.0); MCV 90.2 FL (86-99); MEAN PLAT.VOLUME 9.3 uM^3 (9.0-12.4); MONOCYTE (%) 9.9 % (3-12); MONOCYTE COUNT 0.7 K/uL (0-0.8); NEUTROPHIL (%) 59.1 % (45-76); PLATELET COUNT 313 K/uL (156-360); RBC DIS.WIDTH-SD 46.3 % (39-53); RED BLOOD COUNT 3.27 M/uL (4.00-5.50); WHITE BLOOD COUNT 6.8 K/uL (4.1-10.2)
[2017-05-15 03:56] LABS: CHLORIDE 106 mEq/L (99-109); POTASSIUM 4.5 mEq/L (3.7-5.4); SODIUM 138 mEq/L (136-147)
[2017-05-15 04:00] LABS: ANION GAP 8 MEQ/L (2-14); GLUCOSE 132 mg/dL (70-99)
[2017-05-15 04:01] LABS: TOTAL BILIRUBIN 0.3 mg/dL (0.0-1.0)
[2017-05-15 04:02] LABS: ALKALINE PHOSPHATASE 23 IU/L (3-129); GFR ESTIMATE (CALCULATED) 46 mL/min/
[2017-05-15 04:03] LABS: UREA NITROGEN (BUN) 23 mg/dL (9-23)
[2017-05-15 04:34] LABS: TROP-I INTERPRETATION NEGATIVE; TROPONIN-I 0.02 ng/mL (0.0-0.30)
[2017-05-15 06:28] VITALS: BP 123/62
[2017-05-15 06:54] LABS: POINT-OF-CARE METER ID UU13113700
[2017-05-15 11:30] LABS: TROP-I INTERPRETATION NEGATIVE; TROPONIN-I < 0.01 ng/mL (0.0-0.30)
[2017-05-15 13:11] LABS: POINT-OF-CARE METER ID UU13113700
[2017-05-15 16:30] VITALS: BP 94/50
[2017-05-15 17:39] LABS: POINT-OF-CARE METER ID UU13113700
[2017-05-15 22:44] LABS: POINT-OF-CARE METER ID UU13113700
[2017-05-16 00:53] VITALS: BP 159/66
[2017-05-16 04:08] LABS: POINT-OF-CARE METER ID UU13113700
[2017-05-16 04:37] VITALS: BP 125/84
[2017-05-16 05:29] LABS: BASOPHIL COUNT 0.1 K/uL (0-0.1); EOSINOPHIL (%) 4.7 % (0-5); EOSINOPHIL COUNT 0.4 K/uL (0-0.3); HEMATOCRIT 28.1 % (38.0-50.0); IMMATURE GRANULOCYTE (%) 0.5 % (0.0-0.7); INSTRUMENT ABS NEUTROPHIL CT 5.1 K/uL; LYMPHOCYTE COUNT 1.6 K/uL (1.0-2.8); MCH 29.5 PG (29.0-34.0); MCHC 32.4 G/DL (30.0-36.0); MCV 91.2 FL (86-99); MEAN PLAT.VOLUME 9.4 uM^3 (9.0-12.4); MONOCYTE (%) 9.7 % (3-12); MONOCYTE COUNT 0.8 K/uL (0-0.8); NEUTROPHIL (%) 64.4 % (45-76); NEUTROPHIL COUNT 5.1 K/uL (1.8-6.4); PLATELET COUNT 304 K/uL (156-360); RBC DIS.WIDTH-CV 14.1 % (11.8-14.6); RBC DIS.WIDTH-SD 47.5 % (39-53); RED BLOOD COUNT 3.08 M/uL (4.00-5.50); WHITE BLOOD COUNT 7.9 K/uL (4.1-10.2)
[2017-05-16 05:53] LABS: ALKALINE PHOSPHATASE 21 IU/L (3-129); ANION GAP 7 MEQ/L (2-14); CHLORIDE 107 MEQ/L (99-109); GFR ESTIMATE (CALCULATED) 54 mL/min/; GLUCOSE 129 mg/dL (70-99); POTASSIUM 4.4 MEQ/L (3.7-5.4); SAMPLE HEMOLYSIS CHECK 0; SAMPLE ICTERIC CHECK 0; SAMPLE LIPEMIA CHECK 0; SODIUM 139 MEQ/L (136-147); TOTAL BILIRUBIN 0.3 MG/DL (0.0-1.0); UREA NITROGEN (BUN) 21 mg/dL (9-23)
[2017-05-16 08:52] VITALS: BP 152/67
[2017-05-16 11:10] LABS: C-REACTIVE PROTEIN 10.7 MG/L (0-10)
[2017-05-16 11:56] LABS: ERTH.SED.RATE 16 MM/HR (0-20)
[2017-05-16 13:04] LABS: POINT-OF-CARE METER ID UU14162513
[2017-05-16 15:04] VITALS: BP 115/55
[2017-05-16 16:52] LABS: POINT-OF-CARE METER ID UU14162508
[2017-05-16 19:47] VITALS: BP 159/67
[2017-05-16 21:18] LABS: POINT-OF-CARE METER ID UU14162508
[2017-05-16 23:44] VITALS: BP 126/58
[2017-05-17 01:30] LABS: C DIFF TOXIN POSITIVE (NEGATIVE)
[2017-05-17 01:32] LABS: PROBE CHECK PASS
[2017-05-17 03:15] LABS: POINT-OF-CARE METER ID UU14162508
[2017-05-17 03:45] VITALS: BP 115/55
[2017-05-17 06:21] LABS: POINT-OF-CARE METER ID UU14162508
[2017-05-17 07:20] LABS: BASOPHIL COUNT 0.1 K/uL (0-0.1); EOSINOPHIL (%) 4.7 % (0-5); EOSINOPHIL COUNT 0.4 K/uL (0-0.3); HEMATOCRIT 30.3 % (38.0-50.0); IMMATURE GRANULOCYTE (%) 0.2 % (0.0-0.7); LYMPHOCYTE COUNT 1.2 K/uL (1.0-2.8); MCH 30.7 PG (29.0-34.0); MCHC 32.7 G/DL (30.0-36.0); MCV 93.8 FL (86-99); MONOCYTE (%) 10.2 % (3-12); MONOCYTE COUNT 0.9 K/uL (0-0.8); NEUTROPHIL (%) 70.4 % (45-76); PLATELET COUNT 316 K/uL (156-360); RBC DIS.WIDTH-SD 47.5 % (39-53); RED BLOOD COUNT 3.23 M/uL (4.00-5.50); WHITE BLOOD COUNT 8.6 K/uL (4.1-10.2)
[2017-05-17 07:35] VITALS: BP 116/58
[2017-05-17 07:49] LABS: ANION GAP 6 MEQ/L (2-14); CHLORIDE 106 MEQ/L (99-109); GFR ESTIMATE (CALCULATED) > 59 mL/min/; GLUCOSE 130 mg/dL (70-99); POTASSIUM 4.7 MEQ/L (3.7-5.4); SAMPLE HEMOLYSIS CHECK 0; SAMPLE ICTERIC CHECK 0; SAMPLE LIPEMIA CHECK 0; SODIUM 137 MEQ/L (136-147); UREA NITROGEN (BUN) 15 mg/dL (9-23)
[2017-05-17 11:53] LABS: POINT-OF-CARE METER ID UU14208750
[2017-05-17 12:06] VITALS: BP 190/74
[2017-05-17 16:06] VITALS: BP 100/50
[2017-05-17 17:01] LABS: POINT-OF-CARE METER ID UU14208750
[2017-05-17 19:42] VITALS: BP 144/68
[2017-05-17 21:47] LABS: POINT-OF-CARE METER ID UU14208750
[2017-05-17 23:34] VITALS: BP 132/57
[2017-05-18 03:30] LABS: POINT-OF-CARE METER ID UU14162508
[2017-05-18 06:52] VITALS: BP 145/71
[2017-05-18 07:09] LABS: POINT-OF-CARE METER ID UU14162508
[2017-05-18 07:28] LABS: EOSINOPHIL (%) 5.3 % (0-5); EOSINOPHIL COUNT 0.5 K/uL (0-0.3); HEMATOCRIT 29.9 % (38.0-50.0); IMMATURE GRANULOCYTE (%) 0.6 % (0.0-0.7); IMMATURE GRANULOCYTE COUNT 0.1 K/uL; INSTRUMENT ABS NEUTROPHIL CT 5.9 K/uL; LYMPHOCYTE COUNT 1.4 K/uL (1.0-2.8); MCHC 33.8 G/DL (30.0-36.0); MCV 91.7 FL (86-99); MEAN PLAT.VOLUME 9.9 uM^3 (9.0-12.4); MONOCYTE (%) 9.7 % (3-12); MONOCYTE COUNT 0.8 K/uL (0-0.8); NEUTROPHIL (%) 67.3 % (45-76); NEUTROPHIL COUNT 5.9 K/uL (1.8-6.4); PLATELET COUNT 328 K/uL (156-360); RBC DIS.WIDTH-SD 47.4 % (39-53); RED BLOOD COUNT 3.26 M/uL (4.00-5.50); WHITE BLOOD COUNT 8.7 K/uL (4.1-10.2)
[2017-05-18 08:04] LABS: ALKALINE PHOSPHATASE 21 IU/L (3-129); ANION GAP 10 MEQ/L (2-14); CHLORIDE 104 MEQ/L (99-109); GFR ESTIMATE (CALCULATED) > 59 mL/min/; GLUCOSE 149 mg/dL (70-99); POTASSIUM 4.5 MEQ/L (3.7-5.4); SAMPLE HEMOLYSIS CHECK 0; SAMPLE ICTERIC CHECK 0; SAMPLE LIPEMIA CHECK 0; SODIUM 139 MEQ/L (136-147); UREA NITROGEN (BUN) 14 mg/dL (9-23)
[2017-05-18 08:09] LABS: TOTAL BILIRUBIN 0.4 MG/DL (0.0-1.0)
[2017-05-18 10:45] VITALS: BP 159/77
[2017-05-18 12:29] LABS: POINT-OF-CARE METER ID UU14162508
[2017-05-18 15:30] VITALS: BP 129/58
[2017-05-18 16:12] LABS: POINT-OF-CARE METER ID UU14162508
[2017-05-18 17:58] LABS: POINT-OF-CARE METER ID UU13113675
[2017-05-18 19:37] VITALS: BP 139/79
[2017-05-18 21:30] LABS: POINT-OF-CARE METER ID UU14162508
[2017-05-19 02:52] LABS: POINT-OF-CARE METER ID UU14162508
[2017-05-19 03:57] VITALS: BP 101/60
[2017-05-19 06:27] LABS: POINT-OF-CARE METER ID UU14162508
[2017-05-19 07:00] VITALS: BP 136/61
[2017-05-19 11:54] LABS: POINT-OF-CARE METER ID UU14208750
[2017-05-19 15:00] VITALS: BP 128/70
[2017-05-19 16:22] LABS: POINT-OF-CARE METER ID UU14162508
[2017-05-19 22:22] LABS: POINT-OF-CARE METER ID UU14208750
[2017-05-19 23:29] VITALS: BP 139/65
[2017-05-20 03:08] VITALS: BP 125/85
[2017-05-20 03:14] LABS: POINT-OF-CARE METER ID UU14208750
[2017-05-20 06:23] LABS: POINT-OF-CARE METER ID UU14208750
[2017-05-20 08:05] VITALS: BP 158/72
[2017-05-20 11:46] LABS: POINT-OF-CARE METER ID UU14208750
[2017-05-20 15:28] VITALS: BP 177/80
[2017-05-20 16:23] LABS: POINT-OF-CARE METER ID UU14208750
[2017-05-20 22:11] LABS: POINT-OF-CARE METER ID UU14162508
[2017-05-21 00:21] VITALS: BP 188/83
[2017-05-21 02:32] LABS: POINT-OF-CARE METER ID UU14162508
[2017-05-21 06:23] LABS: POINT-OF-CARE METER ID UU14162508
[2017-05-21 07:40] VITALS: BP 168/74
[2017-05-21 11:39] LABS: POINT-OF-CARE METER ID UU14162508
[2017-05-21] MEDS ORDERED: METRONIDAZOLE500 MG PO (14:18)
[2017-05-21] MEDS ORDERED: XARELTO20 MG PO (14:18)
== END 2017-05-21 15:43 | disposition home or self-care (01) | DRG 256 ==
LOC: EME 14:06 → EDOF 20:52 → ENRESERV 20:53 → 5WEST 21:38 → 2EAST 05-16 12:15 → 5WEST 05-16 12:15 → ENRESERV 05-16 12:16 → 2EAST 05-16 14:58
PROVIDERS: Emergency Medicine; Hospitalist; Internal Medicine
DX: E11.52 Type 2 diabetes mellitus with diabetic peripheral angiopathy with gangrene (principal); N17.9 Acute kidney failure, unspecified; R55 Syncope and collapse; I25.10 Atherosclerotic heart disease of native coronary artery without angina pectoris; I35.0 Nonrheumatic aortic (valve) stenosis; K21.9 Gastro-esophageal reflux disease without esophagitis; I10 Essential (primary) hypertension; L03.115 Cellulitis of right lower limb; L97.509 Non-pressure chronic ulcer of other part of unspecified foot with unspecified severity; E11.621 Type 2 diabetes mellitus with foot ulcer; A04.7 Enterocolitis due to Clostridium difficile; E11.42 Type 2 diabetes mellitus with diabetic polyneuropathy; E03.9 Hypothyroidism, unspecified; E55.9 Vitamin D deficiency, unspecified; E78.5 Hyperlipidemia, unspecified; I25.810 Atherosclerosis of coronary artery bypass graft(s) without angina pectoris; E11.65 Type 2 diabetes mellitus with hyperglycemia; M86.671 Other chronic osteomyelitis, right ankle and foot; E11.622 Type 2 diabetes mellitus with other skin ulcer; D64.9 Anemia, unspecified; M06.9 Rheumatoid arthritis, unspecified; E86.0 Dehydration; J84.10 Pulmonary fibrosis, unspecified; G89.29 Other chronic pain; M54.9 Dorsalgia, unspecified; I25.82 Chronic total occlusion of coronary artery; I73.9 Peripheral vascular disease, unspecified; J44.9 Chronic obstructive pulmonary disease, unspecified; Z87.891 Personal history of nicotine dependence; I69.351 Hemiplegia and hemiparesis following cerebral infarction affecting right dominant side; Z79.4 Long term (current) use of insulin; I25.2 Old myocardial infarction; Z95.5 Presence of coronary angioplasty implant and graft; Z95.820 Peripheral vascular angioplasty status with implants and grafts; Z79.82 Long term (current) use of aspirin
CPT/HCPCS: 70450; 71020; 73718; 80047; 80048; 80053; 81003; 82948; 84484; 85025; 85651; 86140; 87040; 87070; 87075; 87205; 87493; 88305; 88311; 93005; 93971; 94640; 94640 76; 94799; 99202; 99281; 99285; A6260; G0378; J0330; J0696; J1170; J1815; J2060; J2250; J2405; J2543; J2765; J3010; J3370; J7030; J7050

== ENCOUNTER 2017-07-30 08:55 | Observation (INO) | payer OTHER, MEDICARE ==
[~2017-07-30] VITALS: Ht 152.4 cm; Wt 81.8 kg
[~2017-07-30 08:55] MED LIST changes: +DOXAZOSIN MESYLA2 MG PO; +METRONIDAZOLE500 MG PO; +XARELTO15 MG PO; +XARELTO20 MG PO
[2017-07-30 09:45] LABS: MCH 30.2 PG (29.0-34.0); MCV 94.3 FL (86-99); MEAN PLAT.VOLUME 9.3 uM^3 (9.0-12.4); PLATELET COUNT 301 K/uL (156-360); RBC DIS.WIDTH-CV 14.3 % (11.8-14.6); RBC DIS.WIDTH-SD 49.4 % (39-53); RED BLOOD COUNT 3.71 M/uL (4.00-5.50); WHITE BLOOD COUNT 8.6 K/uL (4.1-10.2)
[2017-07-30 09:54] LABS: CHLORIDE 102 mEq/L (99-109); POTASSIUM 5.4 mEq/L (3.7-5.4); SODIUM 136 mEq/L (136-147)
[2017-07-30 09:56] LABS: GLUCOSE 147 mg/dL (70-99)
[2017-07-30 09:57] LABS: ANION GAP 7 MEQ/L (2-14)
[2017-07-30 10:00] LABS: GFR ESTIMATE (CALCULATED) > 59 mL/min/
[2017-07-30 10:01] LABS: UREA NITROGEN (BUN) 16 mg/dL (9-23)
[2017-07-30 10:08] LABS: TROP-I INTERPRETATION NEGATIVE; TROPONIN-I < 0.01 ng/mL (0.0-0.30)
[2017-07-30] MEDS ORDERED: CILOSTAZOL100 MG PO (13:34)
[2017-07-30] MEDS ORDERED: SANTYL30 GM TP (13:43)
[2017-07-30 15:34] VITALS: BP 164/75
[2017-07-30 16:21] LABS: TROP-I INTERPRETATION NEGATIVE; TROPONIN-I 0.01 ng/mL (0.0-0.30)
[2017-07-30 17:41] LABS: POINT-OF-CARE METER ID UU13113831
[2017-07-30 21:09] VITALS: BP 129/59
[2017-07-30 21:45] LABS: POINT-OF-CARE METER ID UU13113831
[2017-07-30 22:21] LABS: TROP-I INTERPRETATION NEGATIVE; TROPONIN-I 0.02 ng/mL (0.0-0.30)
[2017-07-30 23:17] VITALS: BP 124/59
[2017-07-31 03:20] VITALS: BP 111/57
[2017-07-31 06:40] LABS: ANION GAP 5 MEQ/L (2-14); CHLORIDE 101 MEQ/L (99-109); GFR ESTIMATE (CALCULATED) > 59 mL/min/; GLUCOSE 140 mg/dL (70-99); POTASSIUM 4.8 MEQ/L (3.7-5.4); SAMPLE HEMOLYSIS CHECK 0; SAMPLE ICTERIC CHECK 0; SAMPLE LIPEMIA CHECK 0; SODIUM 138 MEQ/L (136-147); UREA NITROGEN (BUN) 19 mg/dL (9-23)
[2017-07-31 08:49] VITALS: BP 127/59
[2017-07-31 12:32] LABS: POINT-OF-CARE METER ID UU14162513
== END 2017-07-31 13:35 | disposition home or self-care (01) ==
LOC: EME 08:55 → EDOF 13:44 → ENRESERV 13:46 → EDOF 13:56 → ENRESERV 13:59 → 5WEST 15:16
PROVIDERS: Internal Medicine; Nurse Practitioner Adult Health
DX: R07.9 Chest pain, unspecified (principal); I16.0 Hypertensive urgency; I10 Essential (primary) hypertension; I25.10 Atherosclerotic heart disease of native coronary artery without angina pectoris; I25.82 Chronic total occlusion of coronary artery; I25.2 Old myocardial infarction; Z95.5 Presence of coronary angioplasty implant and graft; E11.9 Type 2 diabetes mellitus without complications; Z79.4 Long term (current) use of insulin; J44.9 Chronic obstructive pulmonary disease, unspecified; Z87.891 Personal history of nicotine dependence; Z89.421 Acquired absence of other right toe(s); G89.29 Other chronic pain; M54.5 Low back pain; E78.5 Hyperlipidemia, unspecified; E03.9 Hypothyroidism, unspecified; K21.9 Gastro-esophageal reflux disease without esophagitis; I69.351 Hemiplegia and hemiparesis following cerebral infarction affecting right dominant side; Z79.01 Long term (current) use of anticoagulants; Z86.718 Personal history of other venous thrombosis and embolism; Z79.82 Long term (current) use of aspirin; Z91.81 History of falling; Z88.1 Allergy status to other antibiotic agents; Z88.8 Allergy status to other drugs, medicaments and biological substances
CPT/HCPCS: 70450; 71020; 80048; 82948; 84484; 85027; 93005; 94640; 94640 76; 94760; 94799; 99202; 99281; 99284; G0378; J1815

== ENCOUNTER → 2017-08-11 | Outpatient (CLI) | payer MEDICARE ==
[~2017-08-11] MED LIST changes: +CILOSTAZOL100 MG PO; +SANTYL30 GM TP
== END | disposition home or self-care (01) ==
LOC: CDC 08:57
DX: Z01.810 Encounter for preprocedural cardiovascular examination (principal); I49.3 Ventricular premature depolarization; R94.31 Abnormal electrocardiogram [ECG] [EKG]
CPT/HCPCS: 93000

== ENCOUNTER 2017-09-09 13:11 | Observation (INO) | payer OTHER, MEDICARE ==
[~2017-09-09] VITALS: Ht 152.4 cm; Wt 83.1 kg
[~2017-09-09 13:11] MED LIST changes: -IRON325 MG PO
[2017-09-09 13:51] LABS: EOSINOPHIL (%) 5.2 % (0-5); EOSINOPHIL COUNT 0.4 K/uL (0-0.3); IMMATURE GRANULOCYTE (%) 0.4 % (0.0-0.7); INSTRUMENT ABS NEUTROPHIL CT 4.8 K/uL; LYMPHOCYTE COUNT 1.2 K/uL (1.0-2.8); MCH 29.9 PG (29.0-34.0); MCHC 32.1 G/DL (30.0-36.0); MEAN PLAT.VOLUME 8.9 uM^3 (9.0-12.4); MONOCYTE COUNT 0.8 K/uL (0-0.8); NEUTROPHIL (%) 66.7 % (45-76); NEUTROPHIL COUNT 4.8 K/uL (1.8-6.4); PLATELET COUNT 408 K/uL (156-360); RBC DIS.WIDTH-CV 13.2 % (11.8-14.6); RBC DIS.WIDTH-SD 44.9 % (39-53); RED BLOOD COUNT 3.01 M/uL (4.00-5.50); WHITE BLOOD COUNT 7.3 K/uL (4.1-10.2)
[2017-09-09 14:06] LABS: INTER. NORMALIZED RATIO 1.9; PROTHROMBIN TIME 21.1 SEC (10.2-12.9)
[2017-09-09 14:08] LABS: D-DIMER ELISA < 150.00 ng/mLDDU (<230); PTT 35.5 SEC (25-37)
[2017-09-09 14:09] LABS: CHLORIDE 105 mEq/L (99-109)
[2017-09-09 14:10] LABS: POTASSIUM 4.2 mEq/L (3.7-5.4); SODIUM 139 mEq/L (136-147)
[2017-09-09 14:11] LABS: GLUCOSE 82 mg/dL (70-99)
[2017-09-09 14:13] LABS: ANION GAP 7 MEQ/L (2-14)
[2017-09-09 14:15] LABS: GFR ESTIMATE (CALCULATED) > 59 mL/min/ (58.99-99999)
[2017-09-09 14:16] LABS: UREA NITROGEN (BUN) 14 mg/dL (9-23)
[2017-09-09 14:19] LABS: TROP-I INTERPRETATION NEGATIVE; TROPONIN-I < 0.01 ng/mL (0.0-0.30)
[2017-09-09] MEDS ORDERED: XARELTO10 MG PO (16:46)
[2017-09-09] MEDS ORDERED: HYDROCODON-ACE1 EAC7 PO (16:47)
[2017-09-09] MEDS ORDERED: NOVOLIN,HU100 UNITS1 SC (16:48)
[2017-09-09 17:40] VITALS: BP 133/60
[2017-09-09 18:14] LABS: POINT-OF-CARE METER ID UU14162513
[2017-09-09 20:00] VITALS: BP 149/67
[2017-09-09 20:47] LABS: TROP-I INTERPRETATION NEGATIVE; TROPONIN-I < 0.01 ng/mL (0.0-0.30)
[2017-09-09 21:35] LABS: POINT-OF-CARE METER ID UU14302475
[2017-09-10 00:01] VITALS: BP 122/60
[2017-09-10 02:11] LABS: TROP-I INTERPRETATION NEGATIVE; TROPONIN-I 0.01 ng/mL (0.0-0.30)
[2017-09-10 03:34] VITALS: BP 135/64
[2017-09-10 07:56] LABS: POINT-OF-CARE METER ID UU13113831
[2017-09-10 08:28] VITALS: BP 146/64
[2017-09-10 11:36] VITALS: BP 83/46
[2017-09-10 12:05] LABS: POINT-OF-CARE METER ID UU14162513
== END 2017-09-10 15:13 | disposition home or self-care (01) ==
LOC: EME 13:11 → 5WEST 15:37 → EDOF 15:37 → ENRESERV 15:51 → 5WEST 17:29
PROVIDERS: Emergency Medicine; Internal Medicine
DX: R07.89 Other chest pain (principal); D50.9 Iron deficiency anemia, unspecified; I25.10 Atherosclerotic heart disease of native coronary artery without angina pectoris; I69.359 Hemiplegia and hemiparesis following cerebral infarction affecting unspecified side; Z86.718 Personal history of other venous thrombosis and embolism; Z79.01 Long term (current) use of anticoagulants; E11.9 Type 2 diabetes mellitus without complications; I10 Essential (primary) hypertension; I25.2 Old myocardial infarction; Z95.5 Presence of coronary angioplasty implant and graft; I35.0 Nonrheumatic aortic (valve) stenosis; Z79.4 Long term (current) use of insulin; G89.29 Other chronic pain; M54.5 Low back pain; J44.9 Chronic obstructive pulmonary disease, unspecified; Z87.891 Personal history of nicotine dependence; E03.9 Hypothyroidism, unspecified; K21.9 Gastro-esophageal reflux disease without esophagitis; R42 Dizziness and giddiness; E78.5 Hyperlipidemia, unspecified; Z88.1 Allergy status to other antibiotic agents
CPT/HCPCS: 71010; 80048; 82948; 84484; 85025; 85379; 85610; 85730; 93005; 94640; 94640 76; 94799; 99202; 99281; 99285; G0378; J1815; J2270

== ENCOUNTER 2017-09-11 12:47 | Emergency (ER) | payer OTHER, MEDICARE ==
[~2017-09-11] VITALS: Ht 1524 cm; Wt 79.1 kg
[~2017-09-11 12:47] MED LIST changes: +XARELTO10 MG PO
[2017-09-11 13:01] LABS: POINT-OF-CARE METER ID UU14100415
[2017-09-11 14:10] LABS: EOSINOPHIL (%) 2.2 % (0-5); EOSINOPHIL COUNT 0.2 K/uL (0-0.3); HEMATOCRIT 26.2 % (38.0-50.0); IMMATURE GRANULOCYTE (%) 0.4 % (0.0-0.7); INSTRUMENT ABS NEUTROPHIL CT 7.2 K/uL; LYMPHOCYTE COUNT 0.9 K/uL (1.0-2.8); MCH 29.8 PG (29.0-34.0); MCHC 32.1 G/DL (30.0-36.0); MCV 92.9 FL (86-99); MEAN PLAT.VOLUME 9.7 uM^3 (9.0-12.4); MONOCYTE (%) 9.4 % (3-12); MONOCYTE COUNT 0.9 K/uL (0-0.8); NEUTROPHIL (%) 78.2 % (45-76); NEUTROPHIL COUNT 7.2 K/uL (1.8-6.4); PLATELET COUNT 371 K/uL (156-360); RBC DIS.WIDTH-CV 13.2 % (11.8-14.6); RBC DIS.WIDTH-SD 44.8 % (39-53); RED BLOOD COUNT 2.82 M/uL (4.00-5.50); WHITE BLOOD COUNT 9.2 K/uL (4.1-10.2)
[2017-09-11 14:12] LABS: INTER. NORMALIZED RATIO 1.8; PROTHROMBIN TIME 20.5 SEC (10.2-12.9)
[2017-09-11 14:15] LABS: PTT 36.5 SEC (25-37)
[2017-09-11 14:24] LABS: TROP-I INTERPRETATION NEGATIVE; TROPONIN-I < 0.01 ng/mL (0.0-0.30)
[2017-09-11 14:37] LABS: ANION GAP 7 MEQ/L (2-14); CHLORIDE 103 MEQ/L (99-109); POTASSIUM 3.8 MEQ/L (3.7-5.4); SAMPLE HEMOLYSIS CHECK 0; SAMPLE ICTERIC CHECK 0; SAMPLE LIPEMIA CHECK 0; SODIUM 136 MEQ/L (136-147)
[2017-09-11 14:42] LABS: GFR ESTIMATE (CALCULATED) > 59 mL/min/ (58.99-99999); UREA NITROGEN (BUN) 19 mg/dL (9-23)
[2017-09-11 14:55] LABS: GLUCOSE 179 mg/dL (70-99)
[2017-09-11 15:27] VITALS: BP 132/67
[2017-09-11 15:37] LABS: POINT-OF-CARE METER ID UU14100415
== END 2017-09-11 15:49 | disposition home or self-care (01) ==
LOC: EME 12:47
PROVIDERS: Emergency Medicine
DX: E11.649 Type 2 diabetes mellitus with hypoglycemia without coma (principal); Z87.891 Personal history of nicotine dependence; I25.2 Old myocardial infarction; Z86.73 Personal history of transient ischemic attack (TIA), and cerebral infarction without residual deficits; J44.9 Chronic obstructive pulmonary disease, unspecified; I10 Essential (primary) hypertension; F10.10 Alcohol abuse, uncomplicated; E78.5 Hyperlipidemia, unspecified; Z79.4 Long term (current) use of insulin; Z95.5 Presence of coronary angioplasty implant and graft; Z88.8 Allergy status to other drugs, medicaments and biological substances
CPT/HCPCS: 71010; 80048; 81003; 82948; 83605; 84484; 85025; 85610; 85730; 93005; 99281; 99285; J7030

== ENCOUNTER 2017-10-16 05:15 | Observation (INO) | payer OTHER, MEDICARE ==
[~2017-10-16] VITALS: Ht 152.4 cm; Wt 78.2 kg
[2017-10-16 06:00] LABS: HEMATOCRIT 36.7 % (38.0-50.0); MCH 27.6 PG (29.0-34.0); MCHC 32.7 G/DL (30.0-36.0); MCV 84.4 FL (86-99); PLATELET COUNT 331 K/uL (156-360); RBC DIS.WIDTH-CV 13.1 % (11.8-14.6); RBC DIS.WIDTH-SD 40.7 % (39-53); RED BLOOD COUNT 4.35 M/uL (4.00-5.50)
[2017-10-16 06:09] LABS: INTER. NORMALIZED RATIO 1.1
[2017-10-16 06:11] LABS: ALBUMIN 4.1 g/dL (3.2-4.8); CHLORIDE 102 mEq/L (99-109); POTASSIUM 4.6 mEq/L (3.7-5.4); SODIUM 139 mEq/L (136-147)
[2017-10-16 06:12] LABS: MAGNESIUM 1.4 mg/dL (1.3-2.7); PTT 27.1 SEC (25-37)
[2017-10-16 06:13] LABS: GLUCOSE 179 mg/dL (70-99)
[2017-10-16 06:14] LABS: TOTAL PROTEIN 7.2 g/dL (6.4-8.3)
[2017-10-16 06:15] LABS: TOTAL BILIRUBIN 0.3 mg/dL (0.0-1.0)
[2017-10-16 06:16] LABS: SERUM ETHYL ALCOHOL < 10 mg/dL
[2017-10-16 06:17] LABS: ALKALINE PHOSPHATASE 30 IU/L (3-129); CREATININE 1.2 mg/dL (0.6-1.3); GFR ESTIMATE (CALCULATED) > 59 mL/min/ (58.99-99999)
[2017-10-16 06:18] LABS: UREA NITROGEN (BUN) 16 mg/dL (9-23)
[2017-10-16 06:19] LABS: AST (GOT) 19 IU/L (2-34)
[2017-10-16 06:20] LABS: ALT (GPT) 21 IU/L (3-49)
[2017-10-16 10:58] LABS: HEMOGLOBIN 11.4 G/DL (12.5-16.6); MCH 27.7 PG (29.0-34.0); MCHC 32.6 G/DL (30.0-36.0); PLATELET COUNT 333 K/uL (156-360); RBC DIS.WIDTH-CV 13.1 % (11.8-14.6); RED BLOOD COUNT 4.12 M/uL (4.00-5.50); WHITE BLOOD COUNT 8.6 K/uL (4.1-10.2)
[2017-10-16 11:18] LABS: TROP-I INTERPRETATION NEGATIVE; TROPONIN-I 0.05 ng/mL (0.0-0.30)
[2017-10-16 11:25] LABS: HDL CHOLESTEROL 34 MG/DL (Desirable>=40); LDL CHOLESTEROL 57 mg/dL (Desirable<100); NON-HDL CHOLESTEROL 81 mg/dL (Desirable<160); TOTAL CHOLESTEROL 115 mg/dL (Desirable<200); TRIGLYCERIDES 121 MG/DL (Normal: <150)
[2017-10-16 13:25] LABS: APPEARANCE CLEAR ((CLEAR)); BILIRUBIN NEGATIVE; BLOOD SMALL; COLOR YELLOW ((YELLOW)); GLUCOSE (STRIP) 150; KETONES NEGATIVE; LEUKOCYTES MODERATE; NITRITE NEGATIVE; PROTEIN (STRIP) NEGATIVE; SPECIFIC GRAVITY 1.045 (1.000-1.030); UROBILINOGEN 0.2 MG/DL (0.2-1.0)
[2017-10-16 13:31] LABS: BACTERIA NONE SEEN /HPF; EPITHELIAL CELLS RARE /HPF; MUCUS NONE SEEN /LPF; RED BLOOD CELLS 0-5 /HPF (0-5); UCUL ADDED? NO; WHITE BLOOD CELLS 0-5 /HPF (0-5)
[2017-10-16 13:39] LABS: AMPHETAMINE NEGATIVE (500 ng/mL); BARBITURATES NEGATIVE (200 ng/mL); BENZODIAZEPINES NEGATIVE (150 ng/mL); BUPRENORPHINE NEGATIVE (10 ng/mL); COCAINE NEGATIVE (150 ng/mL); METHADONE NEGATIVE (200 ng/mL); METHAMPHETAMINE NEGATIVE (500 ng/mL); OPIATES (MORPHINE) NEGATIVE (100 ng/mL); OXYCODONE NEGATIVE (100 ng/mL); PHENCYCLIDINE NEGATIVE (25 ng/mL); PROPOXYPHENE NEGATIVE (300 ng/mL); THC CANNABINOIDS NEGATIVE (50 ng/mL); TRICYCLIC ANTIDEPRESSANTS NEGATIVE (300 ng/mL)
[2017-10-16 15:26] VITALS: BP 165/78
[2017-10-16 19:00] VITALS: BP 150/65
[2017-10-17 00:45] VITALS: BP 148/67
[2017-10-17 04:00] VITALS: BP 167/77
[2017-10-17 07:01] VITALS: BP 142/74
[2017-10-17 11:32] VITALS: BP 109/58
[2017-10-17] MEDS ORDERED: LO-DOSE ASPIRIN81 M1 PO (13:17)
[2017-10-17 13:49] LABS: HEMOGLOBIN A1c (GLYCOHEMOGLOB) 7.9 % (Below 5.7)
== END 2017-10-17 15:37 | disposition home or self-care (01) ==
LOC: EME 05:15 → EDOF 10:12 → ENRESERV 10:13 → EDOF 10:49 → ENRESERV 14:30 → 5WEST 15:15 → ENPENDDIS 10-17 → 5WEST 10-17 15:37
PROVIDERS: Emergency Medicine; Hospitalist
DX: G45.9 Transient cerebral ischemic attack, unspecified (principal); I69.351 Hemiplegia and hemiparesis following cerebral infarction affecting right dominant side; E11.9 Type 2 diabetes mellitus without complications; I10 Essential (primary) hypertension; E78.5 Hyperlipidemia, unspecified; I25.10 Atherosclerotic heart disease of native coronary artery without angina pectoris; D64.9 Anemia, unspecified; Z87.891 Personal history of nicotine dependence; I73.9 Peripheral vascular disease, unspecified; J44.9 Chronic obstructive pulmonary disease, unspecified; I35.0 Nonrheumatic aortic (valve) stenosis; E03.9 Hypothyroidism, unspecified; M06.9 Rheumatoid arthritis, unspecified; G89.4 Chronic pain syndrome; Z87.19 Personal history of other diseases of the digestive system; Z95.5 Presence of coronary angioplasty implant and graft; Z95.820 Peripheral vascular angioplasty status with implants and grafts; Z82.49 Family history of ischemic heart disease and other diseases of the circulatory system; Z83.49 Family history of other endocrine, nutritional and metabolic diseases; Z83.3 Family history of diabetes mellitus; Z88.1 Allergy status to other antibiotic agents; Z88.2 Allergy status to sulfonamides; Z79.4 Long term (current) use of insulin
CPT/HCPCS: 70450; 70496; 70498; 71045; 80048; 80053; 80061; 81003; 82948; 83036; 83735; 84484; 85027; 85610; 85730; 93005; G0378; G0480; G8978 GP CJ; G8979 GP CI; G8980 CJ; J1815; J7030

== ENCOUNTER 2017-11-14 16:01 | Emergency (ER) | payer OTHER, MEDICARE ==
[~2017-11-14] VITALS: Ht 152.4 cm; Wt 81.2 kg
[2017-11-14] MEDS ORDERED: FUTURO RESTORI1 EACH MC (19:29)
[2017-11-14 19:42] VITALS: BP 180/84
== END 2017-11-14 19:42 | disposition home or self-care (01) ==
LOC: EME 16:01
DX: M79.89 Other specified soft tissue disorders (principal); M79.651 Pain in right thigh; Z86.718 Personal history of other venous thrombosis and embolism; Z79.02 Long term (current) use of antithrombotics/antiplatelets; D64.9 Anemia, unspecified; E11.9 Type 2 diabetes mellitus without complications; I25.2 Old myocardial infarction; Z87.891 Personal history of nicotine dependence; M06.9 Rheumatoid arthritis, unspecified; J44.9 Chronic obstructive pulmonary disease, unspecified; I10 Essential (primary) hypertension; E78.5 Hyperlipidemia, unspecified; I69.351 Hemiplegia and hemiparesis following cerebral infarction affecting right dominant side; Z95.5 Presence of coronary angioplasty implant and graft; Z79.4 Long term (current) use of insulin; Z88.8 Allergy status to other drugs, medicaments and biological substances; Z88.1 Allergy status to other antibiotic agents; Z88.2 Allergy status to sulfonamides
CPT/HCPCS: 93971; 99281; 99283

== ENCOUNTER 2017-12-11 19:25 | Emergency (ER) | payer OTHER, MEDICARE ==
[~2017-12-11] VITALS: Ht 170.2 cm; Wt 80.9 kg
[~2017-12-11 19:25] MED LIST changes: +FUTURO RESTORI1 EACH MC
[2017-12-11] MEDS ORDERED: NORCO 5/3251 TABLET PO (22:45)
[2017-12-11 23:24] VITALS: BP 169/86
== END 2017-12-11 23:25 | disposition home or self-care (01) ==
LOC: EME 19:25
DX: M54.16 Radiculopathy, lumbar region (principal); I25.2 Old myocardial infarction; I10 Essential (primary) hypertension; E78.5 Hyperlipidemia, unspecified; E11.9 Type 2 diabetes mellitus without complications; J44.9 Chronic obstructive pulmonary disease, unspecified; Z86.73 Personal history of transient ischemic attack (TIA), and cerebral infarction without residual deficits; Z95.5 Presence of coronary angioplasty implant and graft; Z86.718 Personal history of other venous thrombosis and embolism; Z95.0 Presence of cardiac pacemaker; Z95.810 Presence of automatic (implantable) cardiac defibrillator; Z79.4 Long term (current) use of insulin; Z79.02 Long term (current) use of antithrombotics/antiplatelets; Z79.01 Long term (current) use of anticoagulants; Z88.2 Allergy status to sulfonamides; Z88.1 Allergy status to other antibiotic agents; Z87.891 Personal history of nicotine dependence; M79.89 Other specified soft tissue disorders
CPT/HCPCS: 93971; 99281; 99283

== ENCOUNTER → 2017-12-31 | Outpatient (CLI) | payer MEDICARE ==
[~2017-12-31] MED LIST changes: +ELIQUIS5 MG PO; +MOBIC15 MG PO
== END | disposition home or self-care (01) ==
LOC: CDC 08:43
DX: Z01.810 Encounter for preprocedural cardiovascular examination (principal)
CPT/HCPCS: 93000

== ENCOUNTER 2018-01-05 14:08 | Day surgery (SDC) | payer OTHER, MEDICARE ==
[~2018-01-05] VITALS: Ht 152.4 cm; Wt 85.3 kg
[2018-01-05 15:00] VITALS: BP 181/84
== END 2018-01-05 16:35 | disposition home or self-care (01) ==
LOC: SDC 14:08
PROVIDERS: Surgery
DX: N18.6 End stage renal disease (principal); Z53.9 Procedure and treatment not carried out, unspecified reason
CPT/HCPCS: 82948

== ENCOUNTER 2018-01-12 13:19 | Inpatient (IN) | payer OTHER, MEDICARE ==
[~2018-01-12] VITALS: Ht 152.4 cm; Wt 83.9 kg
[2018-01-12 13:50] VITALS: BP 143/76
[2018-01-12 20:07] LABS: HEMOGLOBIN 10.3 G/DL (12.5-16.6); MCH 29.2 PG (29.0-34.0); MCHC 33.2 G/DL (30.0-36.0); MCV 87.8 FL (86-99); RBC DIS.WIDTH-CV 14.9 % (11.8-14.6); RBC DIS.WIDTH-SD 47.6 % (39-53); RED BLOOD COUNT 3.53 M/uL (4.00-5.50); WHITE BLOOD COUNT 10.7 K/uL (4.1-10.2)
[2018-01-12 20:13] LABS: PLATELET COUNT 217 K/uL (156-360)
[2018-01-12 20:30] LABS: TROP-I INTERPRETATION NEGATIVE; TROPONIN-I 0.02 ng/mL (0.0-0.30)
[2018-01-12 20:31] LABS: CHLORIDE 103 MEQ/L (99-109); GFR ESTIMATE (CALCULATED) > 59 mL/min/ (58.99-99999); GLUCOSE 341 mg/dL (70-99); POTASSIUM 4.1 MEQ/L (3.7-5.4); SODIUM 134 MEQ/L (136-147); UREA NITROGEN (BUN) 13 mg/dL (9-23)
[2018-01-12 21:16] LABS: BASE EXCESS -0.3 mEq/L (-3 to +3); CARBOXY HGB 1.5 % (0-5); METHEMOGLOBIN 1.4 % (0-1.5); pH 7.36 (7.35-7.45)
[2018-01-12 21:17] LABS: BICARBONATE 25.4 mEq/L (22-26); DEVICE 840; MECHANICAL RATE 12 resp/min; MODE SIMV; PCO2 45 mm Hg (35-45); PEEP 5 CM/H20; PO2 162 mm Hg (80-100); SITE LR; TIDAL VOLUME 450 ML; TOTAL RESP RATE 17 resp/min
[2018-01-12 21:23] LABS: FI02 40 %
[2018-01-13] VITALS (16 sets, daily range): BP systolic 103–163; BP diastolic 57–95
[2018-01-13 01:21] LABS: HEMATOCRIT 28.5 % (38.0-50.0); HEMOGLOBIN 9.7 G/DL (12.5-16.6); MCV 86.6 FL (86-99)
[2018-01-13 06:32] LABS: HEMATOCRIT 29.6 % (38.0-50.0); HEMOGLOBIN 9.7 G/DL (12.5-16.6); MCH 28.6 PG (29.0-34.0); MCHC 32.8 G/DL (30.0-36.0); MCV 87.3 FL (86-99); PLATELET COUNT 216 K/uL (156-360); RBC DIS.WIDTH-CV 15.6 % (11.8-14.6); RBC DIS.WIDTH-SD 49.4 % (39-53); RED BLOOD COUNT 3.39 M/uL (4.00-5.50); WHITE BLOOD COUNT 11.1 K/uL (4.1-10.2)
[2018-01-13 06:57] LABS: TROP-I INTERPRETATION NEGATIVE; TROPONIN-I 0.01 ng/mL (0.0-0.30)
[2018-01-13 07:08] LABS: CHLORIDE 104 MEQ/L (99-109); CREATININE 1.1 MG/DL (0.6-1.3); GFR ESTIMATE (CALCULATED) > 59 mL/min/ (58.99-99999); GLUCOSE 202 mg/dL (70-99); POTASSIUM 4.2 MEQ/L (3.7-5.4); SODIUM 136 MEQ/L (136-147); UREA NITROGEN (BUN) 14 mg/dL (9-23)
[2018-01-14 07:45] VITALS: BP 125/60
[2018-01-14 11:18] LABS: HEMATOCRIT 26.6 % (38.0-50.0); HEMOGLOBIN 8.8 G/DL (12.5-16.6); MCH 29.2 PG (29.0-34.0); MCHC 33.1 G/DL (30.0-36.0); MCV 88.4 FL (86-99); PLATELET COUNT 229 K/uL (156-360); RBC DIS.WIDTH-CV 15.4 % (11.8-14.6); RBC DIS.WIDTH-SD 49.4 % (39-53); RED BLOOD COUNT 3.01 M/uL (4.00-5.50); WHITE BLOOD COUNT 11.3 K/uL (4.1-10.2)
[2018-01-14 11:42] LABS: CHLORIDE 99 MEQ/L (99-109); CREATININE 1.2 MG/DL (0.6-1.3); GFR ESTIMATE (CALCULATED) > 59 mL/min/ (58.99-99999); GLUCOSE 263 mg/dL (70-99); POTASSIUM 4.3 MEQ/L (3.7-5.4); SODIUM 134 MEQ/L (136-147); UREA NITROGEN (BUN) 13 mg/dL (9-23)
[2018-01-14] MEDS ORDERED: ENDOCET 5-3251 EACH PO (11:51)
== END 2018-01-14 12:13 | DRG 253 ==
LOC: SDC 13:19 → 4WEST 19:31 → 2SOUTH 19:31 → ENRESERV 19:49 → 4WEST 01-13 05:50 → ENRESERV 01-13 20:24 → 5SOUTH 01-13 21:41
PROVIDERS: Physician Assistant Surgical; Surgery
PROC: 30233N1 Transfusion of Nonautologous Red Blood Cells into Peripheral Vein, Percutaneous Approach (ICD-10-PCS; principal; 2018-01-12)
PROC: 04CK0ZZ Extirpation of Matter from Right Femoral Artery, Open Approach (ICD-10-PCS; principal; 2018-01-12)
PROC: 041K0JH Bypass Right Femoral Artery to Right Femoral Artery with Synthetic Substitute, Open Approach (ICD-10-PCS; principal; 2018-01-12)
DX: I72.4 Aneurysm of artery of lower extremity (principal); D62 Acute posthemorrhagic anemia; I95.89 Other hypotension; M79.604 Pain in right leg; G89.18 Other acute postprocedural pain; I25.10 Atherosclerotic heart disease of native coronary artery without angina pectoris; E11.9 Type 2 diabetes mellitus without complications; I10 Essential (primary) hypertension; I35.0 Nonrheumatic aortic (valve) stenosis; E78.5 Hyperlipidemia, unspecified; M54.5 Low back pain; G89.29 Other chronic pain; J44.9 Chronic obstructive pulmonary disease, unspecified; E03.9 Hypothyroidism, unspecified; I73.9 Peripheral vascular disease, unspecified; I69.351 Hemiplegia and hemiparesis following cerebral infarction affecting right dominant side; I25.2 Old myocardial infarction; Z79.01 Long term (current) use of anticoagulants; Z79.02 Long term (current) use of antithrombotics/antiplatelets; Z79.82 Long term (current) use of aspirin; Z95.5 Presence of coronary angioplasty implant and graft; Z89.421 Acquired absence of other right toe(s); Z87.891 Personal history of nicotine dependence; Z83.3 Family history of diabetes mellitus; Z82.49 Family history of ischemic heart disease and other diseases of the circulatory system
CPT/HCPCS: 36600; 71045; 80048; 82803; 82948; 84484; 85014; 85018; 85027; 86850; 86900; 86901; 86920; 87641; 93005; 94002; 94799; 97530 GO; C9113; J0131; J0690; J1170; J1644; J1815; J2250; J2405; J2704; J2720; J3010; J7040; J7120; P9016; S0020

== ENCOUNTER 2018-01-14 10:36 | Inpatient (IN) | payer OTHER, MEDICARE ==
[~2018-01-14] VITALS: Ht 152.4 cm; Wt 83.0 kg
[2018-01-14] MEDS ORDERED: ENDOCET 5-3251 EACH PO (11:51)
[2018-01-14 15:44] VITALS: BP 118/63
[2018-01-14 23:36] VITALS: BP 116/65
[2018-01-15] VITALS (7 sets, daily range): BP systolic 108–123; BP diastolic 53–61
[2018-01-15 07:10] LABS: HEMATOCRIT 23.8 % (38.0-50.0); HEMOGLOBIN 7.8 G/DL (12.5-16.6); MCH 29.1 PG (29.0-34.0); MCHC 32.8 G/DL (30.0-36.0); MCV 88.8 FL (86-99); PLATELET COUNT 216 K/uL (156-360); RBC DIS.WIDTH-SD 48.2 % (39-53); RED BLOOD COUNT 2.68 M/uL (4.00-5.50); WHITE BLOOD COUNT 9.8 K/uL (4.1-10.2)
[2018-01-15 07:30] LABS: ALBUMIN 2.6 G/DL (3.2-4.8); ALKALINE PHOSPHATASE 18 IU/L (3-129); ALT (GPT) 28 IU/L (3-49); AST (GOT) 46 IU/L (2-34); CHLORIDE 98 MEQ/L (99-109); CREATININE 0.9 MG/DL (0.6-1.3); GFR ESTIMATE (CALCULATED) > 59 mL/min/ (58.99-99999); GLUCOSE 242 mg/dL (70-99); POTASSIUM 4.2 MEQ/L (3.7-5.4); SODIUM 135 MEQ/L (136-147); TOTAL BILIRUBIN 0.5 MG/DL (0.0-1.0); TOTAL PROTEIN 4.5 G/DL (6.4-8.3); UREA NITROGEN (BUN) 13 mg/dL (9-23)
[2018-01-16 05:44] VITALS: BP 157/77
[2018-01-16 06:06] LABS: BASOPHIL (%) 0.5 % (0-1); BASOPHIL COUNT 0.1 K/uL (0-0.1); EOSINOPHIL (%) 3.3 % (0-5); EOSINOPHIL COUNT 0.4 K/uL (0-0.3); HEMATOCRIT 29.5 % (38.0-50.0); HEMOGLOBIN 9.9 G/DL (12.5-16.6); IMMATURE GRANULOCYTE (%) 0.7 % (0.0-0.7); LYMPHOCYTE (%) 10.5 % (15-42); LYMPHOCYTE COUNT 1.1 K/uL (1.0-2.8); MCH 29.1 PG (29.0-34.0); MCHC 33.6 G/DL (30.0-36.0); MCV 86.8 FL (86-99); MONOCYTE (%) 10.7 % (3-12); MONOCYTE COUNT 1.2 K/uL (0-0.8); NEUTROPHIL (%) 74.3 % (45-76); PLATELET COUNT 278 K/uL (156-360); RBC DIS.WIDTH-CV 14.6 % (11.8-14.6); RBC DIS.WIDTH-SD 46.5 % (39-53); WHITE BLOOD COUNT 10.8 K/uL (4.1-10.2)
[2018-01-16 15:40] VITALS: BP 128/77
[2018-01-17 04:43] VITALS: BP 116/56
[2018-01-17 13:44] LABS: HEMATOCRIT 31.5 % (38.0-50.0); HEMOGLOBIN 10.5 G/DL (12.5-16.6); MCH 29.1 PG (29.0-34.0); MCHC 33.3 G/DL (30.0-36.0); MCV 87.3 FL (86-99); RBC DIS.WIDTH-CV 14.4 % (11.8-14.6); RBC DIS.WIDTH-SD 45.7 % (39-53); RED BLOOD COUNT 3.61 M/uL (4.00-5.50); WHITE BLOOD COUNT 12.2 K/uL (4.1-10.2)
[2018-01-17 14:06] LABS: PLATELET COUNT 371 K/uL (156-360)
[2018-01-17 14:13] LABS: CHLORIDE 94 MEQ/L (99-109); CREATININE 1.1 MG/DL (0.6-1.3); GFR ESTIMATE (CALCULATED) > 59 mL/min/ (58.99-99999); GLUCOSE 250 mg/dL (70-99); POTASSIUM 3.7 MEQ/L (3.7-5.4); SODIUM 132 MEQ/L (136-147); UREA NITROGEN (BUN) 13 mg/dL (9-23)
[2018-01-17 20:15] VITALS: BP 96/52
[2018-01-17 22:20] VITALS: BP 106/56
[2018-01-17 22:53] LABS: BASOPHIL (%) 0.2 % (0-1); EOSINOPHIL (%) 0 % (0-5); HEMOGLOBIN 9.8 G/DL (12.5-16.6); IMMATURE GRANULOCYTE (%) 0.6 % (0.0-0.7); LYMPHOCYTE (%) 3.1 % (15-42); LYMPHOCYTE COUNT 0.6 K/uL (1.0-2.8); MCH 29.9 PG (29.0-34.0); MCV 85.4 FL (86-99); MONOCYTE (%) 10.8 % (3-12); MONOCYTE COUNT 2.1 K/uL (0-0.8); NEUTROPHIL (%) 85.3 % (45-76); NEUTROPHIL COUNT 16.4 K/uL (1.8-6.4); PLATELET COUNT 344 K/uL (156-360); RBC DIS.WIDTH-CV 14.1 % (11.8-14.6); RBC DIS.WIDTH-SD 44.2 % (39-53); RED BLOOD COUNT 3.28 M/uL (4.00-5.50); WHITE BLOOD COUNT 19.2 K/uL (4.1-10.2)
[2018-01-17 23:28] LABS: CHLORIDE 96 MEQ/L (99-109); CREATININE 1.2 MG/DL (0.6-1.3); GFR ESTIMATE (CALCULATED) > 59 mL/min/ (58.99-99999); GLUCOSE 138 mg/dL (70-99); POTASSIUM 3.6 MEQ/L (3.7-5.4); SODIUM 133 MEQ/L (136-147); UREA NITROGEN (BUN) 16 mg/dL (9-23)
== END 2018-01-18 03:25 | DRG 949 ==
LOC: 3WEST 10:36
PROVIDERS: Hospitalist; Internal Medicine; Physical Medicine & Rehabilitation Pain Medicine; Physician Assistant Surgical; Surgery
PROC: F07M0ZZ Range of Motion and Joint Mobility Treatment of Musculoskeletal System - Whole Body (ICD-10-PCS; principal; 2018-01-14)
PROC: 30233N1 Transfusion of Nonautologous Red Blood Cells into Peripheral Vein, Percutaneous Approach (ICD-10-PCS; 2018-01-15)
DX: Z48.89 Encounter for other specified surgical aftercare (principal); I72.4 Aneurysm of artery of lower extremity; D62 Acute posthemorrhagic anemia; E87.1 Hypo-osmolality and hyponatremia; R53.1 Weakness; J84.9 Interstitial pulmonary disease, unspecified; E03.9 Hypothyroidism, unspecified; G89.18 Other acute postprocedural pain; E11.43 Type 2 diabetes mellitus with diabetic autonomic (poly)neuropathy; E11.65 Type 2 diabetes mellitus with hyperglycemia; E66.9 Obesity, unspecified; E78.5 Hyperlipidemia, unspecified; E83.51 Hypocalcemia; E87.6 Hypokalemia; G89.29 Other chronic pain; I10 Essential (primary) hypertension; I25.10 Atherosclerotic heart disease of native coronary artery without angina pectoris; I35.0 Nonrheumatic aortic (valve) stenosis; J44.9 Chronic obstructive pulmonary disease, unspecified; K31.84 Gastroparesis; K59.00 Constipation, unspecified; M54.5 Low back pain; R26.2 Difficulty in walking, not elsewhere classified; Z68.35 Body mass index [BMI] 35.0-35.9, adult; Z87.891 Personal history of nicotine dependence; Z79.02 Long term (current) use of antithrombotics/antiplatelets; Z79.01 Long term (current) use of anticoagulants; Z79.51 Long term (current) use of inhaled steroids; Z87.11 Personal history of peptic ulcer disease; Z60.2 Problems related to living alone; Z88.1 Allergy status to other antibiotic agents; Z95.5 Presence of coronary angioplasty implant and graft; Z79.4 Long term (current) use of insulin; Z98.62 Peripheral vascular angioplasty status; Z89.421 Acquired absence of other right toe(s); I25.2 Old myocardial infarction; Z82.49 Family history of ischemic heart disease and other diseases of the circulatory system; Z83.3 Family history of diabetes mellitus
CPT/HCPCS: 71046; 74176; 80048; 80048 91; 80053; 81003; 82948; 83605; 85025; 85027; 86850; 86900; 86901; 86920; 87040; 87077; 87186; 87502; 87801; 97110 GO; 97530 GP; 99202; J0131; J1815; J2250; J2543; J3010; J3370; J7030; J7050; P9016

== ENCOUNTER 2018-01-18 02:54 | Inpatient (IN) | payer OTHER, MEDICARE ==
[~2018-01-18] VITALS: Ht 152.4 cm; Wt 82.5 kg
[2018-01-18 03:59] VITALS: BP 107/62
[2018-01-18 04:01] VITALS: BP 107/50
[2018-01-18 07:13] VITALS: BP 140/66
[2018-01-18 09:22] LABS: BASOPHIL (%) 0.2 % (0-1); EOSINOPHIL (%) 0 % (0-5); HEMATOCRIT 28.5 % (38.0-50.0); HEMOGLOBIN 9.4 G/DL (12.5-16.6); LYMPHOCYTE (%) 3.5 % (15-42); LYMPHOCYTE COUNT 0.7 K/uL (1.0-2.8); MCH 28.9 PG (29.0-34.0); MCV 87.7 FL (86-99); MONOCYTE (%) 11.2 % (3-12); MONOCYTE COUNT 2.3 K/uL (0-0.8); NEUTROPHIL (%) 84.1 % (45-76); NEUTROPHIL COUNT 17.6 K/uL (1.8-6.4); PLATELET COUNT 341 K/uL (156-360); RBC DIS.WIDTH-CV 14.4 % (11.8-14.6); RBC DIS.WIDTH-SD 45.7 % (39-53); RED BLOOD COUNT 3.25 M/uL (4.00-5.50)
[2018-01-18 09:46] LABS: ALBUMIN 2.6 G/DL (3.2-4.8); ALKALINE PHOSPHATASE 22 IU/L (3-129); ALT (GPT) 17 IU/L (3-49); CHLORIDE 100 MEQ/L (99-109); CREATININE 1.2 MG/DL (0.6-1.3); GFR ESTIMATE (CALCULATED) > 59 mL/min/ (58.99-99999); GLUCOSE 132 mg/dL (70-99); POTASSIUM 3.4 MEQ/L (3.7-5.4); SODIUM 134 MEQ/L (136-147); UREA NITROGEN (BUN) 14 mg/dL (9-23)
[2018-01-18 10:02] LABS: AST (GOT) 16 IU/L (2-34); TOTAL BILIRUBIN 1.5 MG/DL (0.0-1.0)
[2018-01-18 12:53] VITALS: BP 108/57
[2018-01-18 15:15] VITALS: BP 116/57
[2018-01-18 19:48] VITALS: BP 144/67
[2018-01-19] VITALS (16 sets, daily range): BP systolic 95–153; BP diastolic 53–70
[2018-01-19 05:16] LABS: BASOPHIL (%) 0.3 % (0-1); EOSINOPHIL (%) 1.1 % (0-5); EOSINOPHIL COUNT 0.2 K/uL (0-0.3); HEMATOCRIT 23.6 % (38.0-50.0); HEMOGLOBIN 7.9 G/DL (12.5-16.6); IMMATURE GRANULOCYTE (%) 0.9 % (0.0-0.7); LYMPHOCYTE (%) 6.2 % (15-42); LYMPHOCYTE COUNT 0.9 K/uL (1.0-2.8); MCH 29.4 PG (29.0-34.0); MCHC 33.5 G/DL (30.0-36.0); MCV 87.7 FL (86-99); MONOCYTE (%) 7.2 % (3-12); NEUTROPHIL (%) 84.3 % (45-76); NEUTROPHIL COUNT 11.7 K/uL (1.8-6.4); PLATELET COUNT 338 K/uL (156-360); RBC DIS.WIDTH-CV 14.3 % (11.8-14.6); RBC DIS.WIDTH-SD 45.3 % (39-53); RED BLOOD COUNT 2.69 M/uL (4.00-5.50); WHITE BLOOD COUNT 13.9 K/uL (4.1-10.2)
[2018-01-19 05:49] LABS: CHLORIDE 102 MEQ/L (99-109); GFR ESTIMATE (CALCULATED) > 59 mL/min/ (58.99-99999); GLUCOSE 105 mg/dL (70-99); POTASSIUM 3.4 MEQ/L (3.7-5.4); SODIUM 134 MEQ/L (136-147); UREA NITROGEN (BUN) 15 mg/dL (9-23)
[2018-01-19 06:01] LABS: ALBUMIN 2.5 G/DL (3.2-4.8); ALKALINE PHOSPHATASE 24 IU/L (3-129); ALT (GPT) 13 IU/L (3-49); AST (GOT) 13 IU/L (2-34); CHLORIDE 102 MEQ/L (99-109); GFR ESTIMATE (CALCULATED) > 59 mL/min/ (58.99-99999); GLUCOSE 105 mg/dL (70-99); POTASSIUM 3.4 MEQ/L (3.7-5.4); SODIUM 134 MEQ/L (136-147); TOTAL PROTEIN 5.4 G/DL (6.4-8.3); UREA NITROGEN (BUN) 15 mg/dL (9-23)
[2018-01-19 06:03] LABS: TOTAL BILIRUBIN 0.6 MG/DL (0.0-1.0)
[2018-01-19 21:41] LABS: HEMATOCRIT 27.4 % (38.0-50.0); HEMOGLOBIN 9.4 G/DL (12.5-16.6); MCV 86.2 FL (86-99)
[2018-01-20 03:48] VITALS: BP 132/63
[2018-01-20 07:06] VITALS: BP 144/70
[2018-01-20 11:30] VITALS: BP 153/67
[2018-01-20] MEDS ORDERED: ADULT LOW DOSE81 M1 PO (13:48)
[2018-01-20] MEDS ORDERED: ULTRAM50 MG PO (13:54)
[2018-01-20] MEDS ORDERED: ANORO ELLIPTA1 EACH IH (13:55)
[2018-01-20] MEDS ORDERED: FERREX 150 PLU1 EACH PO ×2 (13:56→13:57)
[2018-01-20 15:00] VITALS: BP 136/55
[2018-01-20 19:30] VITALS: BP 136/66
[2018-01-20 22:30] VITALS: BP 120/58
[2018-01-21 04:30] VITALS: BP 128/59
[2018-01-21 06:52] LABS: BASOPHIL (%) 0.5 % (0-1); BASOPHIL COUNT 0.1 K/uL (0-0.1); EOSINOPHIL (%) 1.8 % (0-5); EOSINOPHIL COUNT 0.2 K/uL (0-0.3); HEMATOCRIT 29.7 % (38.0-50.0); IMMATURE GRANULOCYTE (%) 0.8 % (0.0-0.7); LYMPHOCYTE (%) 6.9 % (15-42); LYMPHOCYTE COUNT 0.9 K/uL (1.0-2.8); MCH 29.1 PG (29.0-34.0); MCHC 33.7 G/DL (30.0-36.0); MCV 86.3 FL (86-99); MONOCYTE (%) 10.1 % (3-12); MONOCYTE COUNT 1.3 K/uL (0-0.8); NEUTROPHIL (%) 79.9 % (45-76); RBC DIS.WIDTH-CV 14.3 % (11.8-14.6); RBC DIS.WIDTH-SD 45.6 % (39-53); WHITE BLOOD COUNT 12.5 K/uL (4.1-10.2)
[2018-01-21 06:57] LABS: PLATELET COUNT 489 K/uL (156-360); RED BLOOD COUNT 3.44 M/uL (4.00-5.50)
[2018-01-21 08:05] VITALS: BP 156/70
[2018-01-21 11:38] VITALS: BP 131/58
[2018-01-21 17:01] VITALS: BP 141/63
[2018-01-21 19:00] VITALS: BP 122/50
[2018-01-21 22:30] VITALS: BP 112/53
[2018-01-22 04:00] VITALS: BP 137/63
[2018-01-22 07:03] VITALS: BP 156/70
[2018-01-22 11:51] LABS: CREATININE 0.9 MG/DL (0.6-1.3); GFR ESTIMATE (CALCULATED) > 59 mL/min/ (58.99-99999)
[2018-01-22 12:16] VITALS: BP 163/72
[2018-01-22 16:08] VITALS: BP 145/67
[2018-01-22 20:21] VITALS: BP 176/79
[2018-01-22 23:43] VITALS: BP 160/72
[2018-01-23] VITALS (8 sets, daily range): BP systolic 104–187; BP diastolic 50–83
[2018-01-23 08:20] LABS: HEMATOCRIT 32.9 % (38.0-50.0); HEMOGLOBIN 10.9 G/DL (12.5-16.6); MCH 28.9 PG (29.0-34.0); MCHC 33.1 G/DL (30.0-36.0); MCV 87.3 FL (86-99); PLATELET COUNT 605 K/uL (156-360); RBC DIS.WIDTH-CV 14.3 % (11.8-14.6); RBC DIS.WIDTH-SD 45.5 % (39-53); RED BLOOD COUNT 3.77 M/uL (4.00-5.50); WHITE BLOOD COUNT 13.6 K/uL (4.1-10.2)
[2018-01-23 09:00] LABS: CHLORIDE 101 MEQ/L (99-109); CREATININE 0.9 MG/DL (0.6-1.3); GFR ESTIMATE (CALCULATED) > 59 mL/min/ (58.99-99999); GLUCOSE 115 mg/dL (70-99); POTASSIUM 3.8 MEQ/L (3.7-5.4); SODIUM 138 MEQ/L (136-147); UREA NITROGEN (BUN) 8 mg/dL (9-23)
[2018-01-24] VITALS (7 sets, daily range): BP systolic 117–183; BP diastolic 59–80
[2018-01-24 06:22] LABS: HEMATOCRIT 32.4 % (38.0-50.0); HEMOGLOBIN 10.7 G/DL (12.5-16.6); MCH 28.8 PG (29.0-34.0); MCV 87.3 FL (86-99); PLATELET COUNT 658 K/uL (156-360); RBC DIS.WIDTH-CV 14.4 % (11.8-14.6); RBC DIS.WIDTH-SD 45.8 % (39-53); RED BLOOD COUNT 3.71 M/uL (4.00-5.50); WHITE BLOOD COUNT 10.6 K/uL (4.1-10.2)
[2018-01-25 02:50] VITALS: BP 164/78
[2018-01-25 07:57] VITALS: BP 181/81
[2018-01-25 11:04] VITALS: BP 125/62
[2018-01-25] MEDS ORDERED: ZOSYN 3.3753.375 GM IV (11:22)
[2018-01-25] MEDS ORDERED: VANCOMYCIN HCL1 GM IV (12:46)
== END 2018-01-25 11:56 | DRG 857 ==
LOC: ENRESERV 02:54 → 4EAST 02:54 → ENRESERV 03:10 → 4EAST 03:37
PROVIDERS: Family Medicine; Hospitalist; Internal Medicine; Internal Medicine Gastroenterology; Surgery; Thoracic Surgery (Cardiothoracic Vascular Surgery)
DX: T81.4XXA Infection following a procedure, initial encounter (principal); L03.314 Cellulitis of groin; B96.89 Other specified bacterial agents as the cause of diseases classified elsewhere; I97.638 Postprocedural hematoma of a circulatory system organ or structure following other circulatory system procedure; D62 Acute posthemorrhagic anemia; I69.351 Hemiplegia and hemiparesis following cerebral infarction affecting right dominant side; J44.9 Chronic obstructive pulmonary disease, unspecified; E11.59 Type 2 diabetes mellitus with other circulatory complications; I70.203 Unspecified atherosclerosis of native arteries of extremities, bilateral legs; R11.2 Nausea with vomiting, unspecified; T37.3X5A Adverse effect of other antiprotozoal drugs, initial encounter; I72.4 Aneurysm of artery of lower extremity; I25.10 Atherosclerotic heart disease of native coronary artery without angina pectoris; I10 Essential (primary) hypertension; E78.5 Hyperlipidemia, unspecified; I35.0 Nonrheumatic aortic (valve) stenosis; G89.29 Other chronic pain; M54.5 Low back pain; E03.9 Hypothyroidism, unspecified; E78.00 Pure hypercholesterolemia, unspecified; G89.18 Other acute postprocedural pain; N50.89 Other specified disorders of the male genital organs; I25.2 Old myocardial infarction; Z95.5 Presence of coronary angioplasty implant and graft; Z87.891 Personal history of nicotine dependence; Z79.01 Long term (current) use of anticoagulants; Z79.02 Long term (current) use of antithrombotics/antiplatelets; Z79.4 Long term (current) use of insulin; Z82.49 Family history of ischemic heart disease and other diseases of the circulatory system; Z83.3 Family history of diabetes mellitus
CPT/HCPCS: 80048; 80053; 80202; 82565; 82948; 85014; 85018; 85025; 85027; 86850; 86900; 86901; 86920; 87070; 87075; 87077; 87186; 87205; 94799; 97530 GO; 99202; J0690; J1170; J1815; J2405; J2543; J3370; J7030; J7050; P9016; S0020

== ENCOUNTER 2018-01-25 08:45 | Inpatient (IN) | payer OTHER, MEDICARE ==
[~2018-01-25] VITALS: Ht 152.4 cm; Wt 80.2 kg
[~2018-01-25 08:45] MED LIST changes: +ANORO ELLIPTA1 EACH IH; +FERREX 150 PLU1 EACH PO; +ULTRAM50 MG PO
[2018-01-25] MEDS ORDERED: ZOSYN 3.3753.375 GM IV (11:22)
[2018-01-25 12:19] VITALS: BP 138/66
[2018-01-25] MEDS ORDERED: VANCOMYCIN HCL1 GM IV (12:46)
[2018-01-25 15:53] VITALS: BP 150/68
[2018-01-25 23:03] VITALS: BP 159/70
[2018-01-26 04:28] VITALS: BP 144/80
[2018-01-26 06:04] LABS: HEMATOCRIT 35.6 % (38.0-50.0); HEMOGLOBIN 11.3 G/DL (12.5-16.6); MCHC 31.7 G/DL (30.0-36.0); MCV 88.3 FL (86-99); PLATELET COUNT 708 K/uL (156-360); RBC DIS.WIDTH-CV 14.3 % (11.8-14.6); RBC DIS.WIDTH-SD 46.2 % (39-53); RED BLOOD COUNT 4.03 M/uL (4.00-5.50); WHITE BLOOD COUNT 17.7 K/uL (4.1-10.2)
[2018-01-26 06:38] LABS: ALBUMIN 2.6 G/DL (3.2-4.8); ALKALINE PHOSPHATASE 25 IU/L (3-129); ALT (GPT) 10 IU/L (3-49); AST (GOT) 10 IU/L (2-34); CHLORIDE 100 MEQ/L (99-109); CREATININE 1.1 MG/DL (0.6-1.3); GFR ESTIMATE (CALCULATED) > 59 mL/min/ (58.99-99999); POTASSIUM 4.5 MEQ/L (3.7-5.4); SODIUM 135 MEQ/L (136-147); TOTAL BILIRUBIN 0.4 MG/DL (0.0-1.0); TOTAL PROTEIN 5.3 G/DL (6.4-8.3); UREA NITROGEN (BUN) 10 mg/dL (9-23)
[2018-01-26 06:45] LABS: GLUCOSE 191 mg/dL (70-99)
[2018-01-26 16:35] VITALS: BP 117/57
[2018-01-27 05:23] VITALS: BP 133/67
[2018-01-27 15:07] VITALS: BP 103/53
[2018-01-28 05:56] VITALS: BP 141/70
[2018-01-28 07:06] LABS: HEMATOCRIT 34.6 % (38.0-50.0); HEMOGLOBIN 11.3 G/DL (12.5-16.6); MCH 28.7 PG (29.0-34.0); MCHC 32.7 G/DL (30.0-36.0); MCV 87.8 FL (86-99); PLATELET COUNT 760 K/uL (156-360); RBC DIS.WIDTH-CV 14.4 % (11.8-14.6); RBC DIS.WIDTH-SD 46.3 % (39-53); RED BLOOD COUNT 3.94 M/uL (4.00-5.50); WHITE BLOOD COUNT 10.3 K/uL (4.1-10.2)
[2018-01-28 15:30] VITALS: BP 148/65
[2018-01-29 05:35] VITALS: BP 148/64
[2018-01-29 15:52] VITALS: BP 144/65
[2018-01-30 05:44] VITALS: BP 125/59
[2018-01-30 15:55] VITALS: BP 147/63
[2018-01-31 05:32] VITALS: BP 131/63
[2018-01-31 15:41] VITALS: BP 104/55
[2018-02-01 04:40] VITALS: BP 113/52
[2018-02-01 05:33] LABS: BASOPHIL (%) 1.3 % (0-1); BASOPHIL COUNT 0.1 K/uL (0-0.1); EOSINOPHIL (%) 3.8 % (0-5); EOSINOPHIL COUNT 0.4 K/uL (0-0.3); HEMATOCRIT 33.6 % (38.0-50.0); HEMOGLOBIN 10.9 G/DL (12.5-16.6); IMMATURE GRANULOCYTE (%) 0.9 % (0.0-0.7); LYMPHOCYTE (%) 15.7 % (15-42); LYMPHOCYTE COUNT 1.5 K/uL (1.0-2.8); MCH 28.3 PG (29.0-34.0); MCHC 32.4 G/DL (30.0-36.0); MCV 87.3 FL (86-99); MONOCYTE (%) 13.2 % (3-12); MONOCYTE COUNT 1.2 K/uL (0-0.8); NEUTROPHIL (%) 65.1 % (45-76); NEUTROPHIL COUNT 6.1 K/uL (1.8-6.4); PLATELET COUNT 586 K/uL (156-360); RBC DIS.WIDTH-CV 14.2 % (11.8-14.6); RBC DIS.WIDTH-SD 45.2 % (39-53); RED BLOOD COUNT 3.85 M/uL (4.00-5.50); WHITE BLOOD COUNT 9.4 K/uL (4.1-10.2)
[2018-02-01 15:13] VITALS: BP 122/59
[2018-02-01] MEDS ORDERED: ATORVASTATIN CA80 MG PO (22:50)
[2018-02-01] MEDS ORDERED: ULTRAM50 MG PO (22:50)
[2018-02-01] MEDS ORDERED: PROAIR HFA8.5 GM IH (22:50)
[2018-02-01] MEDS ORDERED: ELIQUIS5 MG PO (22:50)
[2018-02-01] MEDS ORDERED: NITROSTAT0.4 MG SL (22:50)
[2018-02-01] MEDS ORDERED: CILOSTAZOL100 MG PO (22:50)
[2018-02-01] MEDS ORDERED: IMDUR60 MG PO (22:50)
[2018-02-01] MEDS ORDERED: SENNA PLUS TAB1 EACH PO (22:50)
[2018-02-01] MEDS ORDERED: FOLIC ACID1 MG PO (22:50)
[2018-02-01] MEDS ORDERED: LOSARTAN POTAS100 MG PO (22:50)
[2018-02-01] MEDS ORDERED: RANEXA1000 MG PO (22:50)
[2018-02-01] MEDS ORDERED: NOVOLIN N100 UNITS/ SC ×2 (22:50)
[2018-02-01] MEDS ORDERED: ASCORBIC ACID500 M3 PO (22:50)
[2018-02-01] MEDS ORDERED: PANTOPRAZOLE SO40 MG PO (22:50)
[2018-02-01] MEDS ORDERED: FENOFIBRATE134 M1 PO (22:50)
[2018-02-01] MEDS ORDERED: METOPROLOL TART50 MG PO (22:50)
[2018-02-01] MEDS ORDERED: FERREX 150 PLU1 EACH PO (22:50)
[2018-02-01] MEDS ORDERED: ANORO ELLIPTA1 EACH IH (22:50)
[2018-02-01] MEDS ORDERED: THERAGRAN1 TABLET PO (22:50)
[2018-02-02 05:02] VITALS: BP 132/59
== END 2018-02-02 13:50 | disposition home health service (06) | DRG 92 ==
LOC: 3WEST 08:45
PROVIDERS: Internal Medicine; Physical Medicine & Rehabilitation Pain Medicine; Physician Assistant Surgical
PROC: F07M0ZZ Range of Motion and Joint Mobility Treatment of Musculoskeletal System - Whole Body (ICD-10-PCS; principal; 2018-01-25)
DX: R26.9 Unspecified abnormalities of gait and mobility (principal); I10 Essential (primary) hypertension; G89.18 Other acute postprocedural pain; E11.9 Type 2 diabetes mellitus without complications; T81.4XXA Infection following a procedure, initial encounter; S30.1XXA Contusion of abdominal wall, initial encounter; E78.5 Hyperlipidemia, unspecified; G89.29 Other chronic pain; E03.9 Hypothyroidism, unspecified; E83.51 Hypocalcemia; L76.32 Postprocedural hematoma of skin and subcutaneous tissue following other procedure; I25.10 Atherosclerotic heart disease of native coronary artery without angina pectoris; M54.9 Dorsalgia, unspecified; Z88.1 Allergy status to other antibiotic agents; Z88.2 Allergy status to sulfonamides; Z86.79 Personal history of other diseases of the circulatory system; Z87.891 Personal history of nicotine dependence; Z89.411 Acquired absence of right great toe; Z95.5 Presence of coronary angioplasty implant and graft; I69.351 Hemiplegia and hemiparesis following cerebral infarction affecting right dominant side; D47.3 Essential (hemorrhagic) thrombocythemia; R04.0 Epistaxis; J44.9 Chronic obstructive pulmonary disease, unspecified; Z98.890 Other specified postprocedural states; Z79.4 Long term (current) use of insulin; E87.1 Hypo-osmolality and hyponatremia; Z83.3 Family history of diabetes mellitus; I35.0 Nonrheumatic aortic (valve) stenosis
CPT/HCPCS: 80053; 82948; 85025; 85027; 94640; 94640 76; 97110 GO; 97530 GP; 99202; A6260; J1815; J2543; J7050

== ENCOUNTER 2018-02-04 02:38 | Inpatient (IN) | payer OTHER, MEDICARE ==
[~2018-02-04] VITALS: Ht 152.4 cm; Wt 80.6 kg
[~2018-02-04 02:38] MED LIST changes: +ASCORBIC ACID500 M3 PO; +FOLIC ACID1 MG PO; +SENNA PLUS TAB1 EACH PO; +VANCOMYCIN HCL1 GM IV; +ZOSYN 3.3753.375 GM IV
[2018-02-04 03:48] LABS: HEMATOCRIT 32.1 % (38.0-50.0); HEMOGLOBIN 10.9 G/DL (12.5-16.6); MCH 29.2 PG (29.0-34.0); MCV 86.1 FL (86-99); PLATELET COUNT 463 K/uL (156-360); RBC DIS.WIDTH-CV 14.3 % (11.8-14.6); RBC DIS.WIDTH-SD 44.6 % (39-53); RED BLOOD COUNT 3.73 M/uL (4.00-5.50); WHITE BLOOD COUNT 9.1 K/uL (4.1-10.2)
[2018-02-04 03:54] LABS: INTER. NORMALIZED RATIO 2.2
[2018-02-04 03:57] LABS: PTT 33.1 SEC (25-37)
[2018-02-04 04:07] LABS: ALBUMIN 3.2 g/dL (3.2-4.8)
[2018-02-04 04:08] LABS: CHLORIDE 100 mEq/L (99-109); SODIUM 136 mEq/L (136-147)
[2018-02-04 04:10] LABS: GLUCOSE 125 mg/dL (70-99); TOTAL PROTEIN 6.4 g/dL (6.4-8.3); TROP-I INTERPRETATION NEGATIVE; TROPONIN-I 0.01 ng/mL (0.0-0.30)
[2018-02-04 04:12] LABS: TOTAL BILIRUBIN 0.5 mg/dL (0.0-1.0)
[2018-02-04 04:13] LABS: ALKALINE PHOSPHATASE 31 IU/L (3-129)
[2018-02-04 04:14] LABS: GFR ESTIMATE (CALCULATED) > 59 mL/min/ (58.99-99999)
[2018-02-04 04:15] LABS: AST (GOT) 14 IU/L (2-34); UREA NITROGEN (BUN) 17 mg/dL (9-23)
[2018-02-04 04:16] LABS: ALT (GPT) 15 IU/L (3-49)
[2018-02-04 04:17] LABS: LIPASE 2 U/L (1.0-51.0)
[2018-02-04] MEDS ORDERED: PROTONIX40 MG PO (09:06)
[2018-02-04] MEDS ORDERED: NOVOLIN N100 UNITS/ SC ×2 (09:10)
[2018-02-04] MEDS ORDERED: NOVOLIN,HU100 UNITS1 SC (09:11)
[2018-02-04] MEDS ORDERED: CLOPIDOGREL75 MG PO (09:16)
[2018-02-04 14:30] VITALS: BP 178/78
[2018-02-04 14:34] VITALS: BP 178/78
[2018-02-04 19:27] VITALS: BP 152/70
[2018-02-04 23:50] VITALS: BP 156/86
[2018-02-05 03:40] VITALS: BP 140/6
[2018-02-05 07:55] VITALS: BP 123/60
[2018-02-05 12:34] VITALS: BP 107/55
[2018-02-05 15:55] VITALS: BP 149/65
[2018-02-05 19:44] VITALS: BP 147/72
[2018-02-05 23:29] VITALS: BP 130/64
[2018-02-06 07:55] VITALS: BP 155/64
[2018-02-06 11:28] VITALS: BP 152/66
[2018-02-06 16:04] VITALS: BP 122/62
[2018-02-06 23:30] VITALS: BP 151/65
[2018-02-07 07:40] VITALS: BP 154/70
[2018-02-07 16:30] VITALS: BP 148/77
[2018-02-07 23:24] VITALS: BP 119/58
[2018-02-08 07:45] VITALS: BP 160/78
[2018-02-08 15:49] VITALS: BP 149/72
[2018-02-08 23:07] VITALS: BP 110/53
[2018-02-09 08:12] VITALS: BP 157/80
[2018-02-09] MEDS ORDERED: CIPRO500 MG PO (11:43)
[2018-02-09 15:36] VITALS: BP 103/55
[2018-02-10 00:22] VITALS: BP 169/66
[2018-02-10 08:01] VITALS: BP 172/69
[2018-02-10 16:32] VITALS: BP 124/63
== END 2018-02-10 18:52 | DRG 902 ==
LOC: EME 02:38 → SDC 12:31 → 2SOUTH 13:11 → 3EAST 13:11 → ENRESERV 13:14 → 3EAST 14:23
PROVIDERS: Emergency Medicine; Surgery
PROC: 0JBC0ZZ Excision of Pelvic Region Subcutaneous Tissue and Fascia, Open Approach (ICD-10-PCS; principal; 2018-02-04)
DX: L76.82 Other postprocedural complications of skin and subcutaneous tissue (principal); I96 Gangrene, not elsewhere classified; B96.89 Other specified bacterial agents as the cause of diseases classified elsewhere; Y83.8 Other surgical procedures as the cause of abnormal reaction of the patient, or of later complication, without mention of misadventure at the time of the procedure; I82.411 Acute embolism and thrombosis of right femoral vein; I82.811 Embolism and thrombosis of superficial veins of right lower extremity; I10 Essential (primary) hypertension; I25.10 Atherosclerotic heart disease of native coronary artery without angina pectoris; E78.5 Hyperlipidemia, unspecified; E11.51 Type 2 diabetes mellitus with diabetic peripheral angiopathy without gangrene; E03.9 Hypothyroidism, unspecified; I35.0 Nonrheumatic aortic (valve) stenosis; J43.9 Emphysema, unspecified; G89.29 Other chronic pain; M54.5 Low back pain; E66.9 Obesity, unspecified; Z68.34 Body mass index [BMI] 34.0-34.9, adult; I69.351 Hemiplegia and hemiparesis following cerebral infarction affecting right dominant side; I25.2 Old myocardial infarction; Z95.5 Presence of coronary angioplasty implant and graft; Z79.01 Long term (current) use of anticoagulants; Z79.82 Long term (current) use of aspirin; Z79.4 Long term (current) use of insulin; Z86.718 Personal history of other venous thrombosis and embolism; Z87.891 Personal history of nicotine dependence
CPT/HCPCS: 75635; 80053; 82948; 83605; 83690; 84484; 85027; 85610; 85730; 86850; 86900; 86901; 87040; 87070; 87075; 87077; 87186; 87205; 93971; 97530 GO; 99281; 99285; A6260; J1644; J1815; J2250; J2543; J2720; J3010; J3370; J7030; J7050; S0020

== ENCOUNTER 2018-02-14 07:08 | Emergency (ER) | payer OTHER, MEDICARE ==
[~2018-02-14] VITALS: Ht 152.4 cm; Wt 79.9 kg
[~2018-02-14 07:08] MED LIST changes: +CIPRO500 MG PO
[2018-02-14 08:13] LABS: HEMOGLOBIN 10.2 G/DL (12.5-16.6); MCH 29.7 PG (29.0-34.0); MCV 87.2 FL (86-99); RBC DIS.WIDTH-CV 14.9 % (11.8-14.6); RBC DIS.WIDTH-SD 47.6 % (39-53); RED BLOOD COUNT 3.44 M/uL (4.00-5.50); WHITE BLOOD COUNT 9.4 K/uL (4.1-10.2)
[2018-02-14 08:19] LABS: ALBUMIN 3.3 g/dL (3.2-4.8); CHLORIDE 104 mEq/L (99-109); POTASSIUM 4.2 mEq/L (3.7-5.4); SODIUM 139 mEq/L (136-147)
[2018-02-14 08:21] LABS: GLUCOSE 176 mg/dL (70-99); TOTAL PROTEIN 6.5 g/dL (6.4-8.3)
[2018-02-14 08:23] LABS: TOTAL BILIRUBIN 0.6 mg/dL (0.0-1.0)
[2018-02-14 08:25] LABS: ALKALINE PHOSPHATASE 34 IU/L (3-129); GFR ESTIMATE (CALCULATED) > 59 mL/min/ (58.99-99999)
[2018-02-14 08:26] LABS: UREA NITROGEN (BUN) 17 mg/dL (9-23)
[2018-02-14 08:27] LABS: AST (GOT) 12 IU/L (2-34)
[2018-02-14 08:28] LABS: ALT (GPT) 17 IU/L (3-49)
[2018-02-14] MEDS ORDERED: ANORO ELLIPTA1 EACH IH (08:33)
[2018-02-14] MEDS ORDERED: TYLENOL REGULA325 MG PO (08:33)
[2018-02-14] MEDS ORDERED: CIPRO500 MG PO (08:35)
[2018-02-14] MEDS ORDERED: IMDUR60 MG PO (08:39)
[2018-02-14 08:50] LABS: PLAT.SUFFICIENCY ADEQUATE; PLATELET CLUMPS PRESENT - PLATELET COUNT APPEARS ADQ.
[2018-02-14 08:52] LABS: PLATELET COUNT UNABLE TO REPORT K/uL (156-360)
[2018-02-14] MEDS ORDERED: CODITUSSIN AC473 ML PO (09:41)
[2018-02-14 11:02] VITALS: BP 143/81
== END 2018-02-14 11:04 ==
LOC: EME → EDBD 07:08 → EME 11:04
PROVIDERS: Nurse Practitioner Family
DX: R04.2 Hemoptysis (principal); D64.9 Anemia, unspecified; E11.9 Type 2 diabetes mellitus without complications; Z86.73 Personal history of transient ischemic attack (TIA), and cerebral infarction without residual deficits; J44.9 Chronic obstructive pulmonary disease, unspecified; E78.5 Hyperlipidemia, unspecified; M06.9 Rheumatoid arthritis, unspecified; I25.2 Old myocardial infarction; Z95.0 Presence of cardiac pacemaker; Z86.718 Personal history of other venous thrombosis and embolism; Z79.4 Long term (current) use of insulin; Z95.5 Presence of coronary angioplasty implant and graft; Z87.891 Personal history of nicotine dependence; Z88.2 Allergy status to sulfonamides; Z88.1 Allergy status to other antibiotic agents
CPT/HCPCS: 71046; 80053; 83880; 85027; 93005; 99281; 99285

== ENCOUNTER 2018-02-21 13:44 | Emergency (ER) | payer OTHER, MEDICARE ==
[~2018-02-21] VITALS: Ht 152.4 cm; Wt 82.5 kg
[~2018-02-21 13:44] MED LIST changes: +CODITUSSIN AC473 ML PO; +TYLENOL REGULA325 MG PO
[2018-02-21 14:39] LABS: HEMATOCRIT 31.1 % (38.0-50.0); HEMOGLOBIN 10.6 G/DL (12.5-16.6); MCH 29.5 PG (29.0-34.0); MCHC 34.1 G/DL (30.0-36.0); MCV 86.6 FL (86-99); PLATELET COUNT 343 K/uL (156-360); RBC DIS.WIDTH-SD 47.4 % (39-53); RED BLOOD COUNT 3.59 M/uL (4.00-5.50); WHITE BLOOD COUNT 8.5 K/uL (4.1-10.2)
[2018-02-21 14:47] LABS: INTER. NORMALIZED RATIO 2.4
[2018-02-21 14:50] LABS: CHLORIDE 100 mEq/L (99-109); POTASSIUM 3.7 mEq/L (3.7-5.4); PTT 35.8 SEC (25-37); SODIUM 135 mEq/L (136-147)
[2018-02-21 14:51] LABS: GLUCOSE 222 mg/dL (70-99)
[2018-02-21 14:55] LABS: CREATININE 0.9 mg/dL (0.6-1.3); GFR ESTIMATE (CALCULATED) > 59 mL/min/ (58.99-99999)
[2018-02-21 14:56] LABS: UREA NITROGEN (BUN) 12 mg/dL (9-23)
[2018-02-21 15:20] VITALS: BP 151/65
== END 2018-02-21 15:27 ==
LOC: EME 13:44
PROVIDERS: Emergency Medicine Emergency Medical Services
DX: R04.0 Epistaxis (principal); Z79.01 Long term (current) use of anticoagulants; Z79.02 Long term (current) use of antithrombotics/antiplatelets; J44.9 Chronic obstructive pulmonary disease, unspecified; E78.5 Hyperlipidemia, unspecified; I25.2 Old myocardial infarction; Z86.73 Personal history of transient ischemic attack (TIA), and cerebral infarction without residual deficits; Z95.5 Presence of coronary angioplasty implant and graft; Z86.718 Personal history of other venous thrombosis and embolism; M06.9 Rheumatoid arthritis, unspecified; Z88.2 Allergy status to sulfonamides; Z88.1 Allergy status to other antibiotic agents; Z87.891 Personal history of nicotine dependence
CPT/HCPCS: 80048; 85027; 85610; 85730; 99281; 99284

== ENCOUNTER 2018-03-23 11:30 | Emergency (ER) | payer OTHER, MEDICARE ==
[~2018-03-23] VITALS: Ht 152.4 cm; Wt 79.9 kg
[2018-03-23 13:59] LABS: HEMATOCRIT 32.9 % (38.0-50.0); MCH 29.8 PG (29.0-34.0); MCHC 33.4 G/DL (30.0-36.0); MCV 89.2 FL (86-99); PLATELET COUNT 377 K/uL (156-360); RBC DIS.WIDTH-CV 14.6 % (11.8-14.6); RBC DIS.WIDTH-SD 47.6 % (39-53); RED BLOOD COUNT 3.69 M/uL (4.00-5.50); WHITE BLOOD COUNT 12.2 K/uL (4.1-10.2)
[2018-03-23 14:05] LABS: INTER. NORMALIZED RATIO 2.4
[2018-03-23 14:07] LABS: PTT 33.3 SEC (25-37)
[2018-03-23 14:09] LABS: ALBUMIN 3.7 g/dL (3.2-4.8); CHLORIDE 108 mEq/L (99-109); POTASSIUM 4.3 mEq/L (3.7-5.4); SODIUM 141 mEq/L (136-147)
[2018-03-23 14:12] LABS: GLUCOSE 96 mg/dL (70-99); TOTAL PROTEIN 6.8 g/dL (6.4-8.3)
[2018-03-23 14:14] LABS: TOTAL BILIRUBIN 0.4 mg/dL (0.0-1.0)
[2018-03-23 14:15] LABS: ALKALINE PHOSPHATASE 25 IU/L (3-129); CREATININE 1.1 mg/dL (0.6-1.3); GFR ESTIMATE (CALCULATED) > 59 mL/min/ (58.99-99999)
[2018-03-23 14:16] LABS: UREA NITROGEN (BUN) 18 mg/dL (9-23)
[2018-03-23 14:17] LABS: AST (GOT) 13 IU/L (2-34)
[2018-03-23 14:18] LABS: ALT (GPT) 14 IU/L (3-49)
[2018-03-23 14:21] LABS: TROP-I INTERPRETATION NEGATIVE; TROPONIN-I 0.02 ng/mL (0.0-0.30)
[2018-03-23 15:23] VITALS: BP 113/56
== END 2018-03-23 15:24 | disposition home or self-care (01) ==
LOC: EME 11:30
PROVIDERS: Nurse Practitioner Family
DX: R23.3 Spontaneous ecchymoses (principal); D72.829 Elevated white blood cell count, unspecified; D64.9 Anemia, unspecified; D47.3 Essential (hemorrhagic) thrombocythemia; Z79.01 Long term (current) use of anticoagulants; Z79.02 Long term (current) use of antithrombotics/antiplatelets; Z79.82 Long term (current) use of aspirin; Z86.718 Personal history of other venous thrombosis and embolism; Z86.73 Personal history of transient ischemic attack (TIA), and cerebral infarction without residual deficits; Z95.5 Presence of coronary angioplasty implant and graft; I25.2 Old myocardial infarction; I10 Essential (primary) hypertension; E78.5 Hyperlipidemia, unspecified; E03.9 Hypothyroidism, unspecified; E11.9 Type 2 diabetes mellitus without complications; Z79.4 Long term (current) use of insulin; Z87.891 Personal history of nicotine dependence
CPT/HCPCS: 73030; 80053; 84484; 85027; 85610; 85730; 86850; 86900; 86901; 93005; 99281; 99284

== ENCOUNTER 2018-04-19 19:22 | Observation (INO) | payer OTHER, MEDICARE ==
[~2018-04-19] VITALS: Ht 152.4 cm; Wt 76.8 kg
[2018-04-19 21:01] LABS: BASOPHIL (%) 0.4 % (0-1); EOSINOPHIL (%) 1.3 % (0-5); EOSINOPHIL COUNT 0.1 K/uL (0-0.3); HEMATOCRIT 35.7 % (38.0-50.0); HEMOGLOBIN 12.2 G/DL (12.5-16.6); IMMATURE GRANULOCYTE (%) 0.4 % (0.0-0.7); LYMPHOCYTE (%) 11.3 % (15-42); LYMPHOCYTE COUNT 0.8 K/uL (1.0-2.8); MCH 29.8 PG (29.0-34.0); MCHC 34.2 G/DL (30.0-36.0); MCV 87.1 FL (86-99); MONOCYTE (%) 6.8 % (3-12); MONOCYTE COUNT 0.5 K/uL (0-0.8); NEUTROPHIL (%) 79.8 % (45-76); NEUTROPHIL COUNT 5.7 K/uL (1.8-6.4); PLATELET COUNT 305 K/uL (156-360); RBC DIS.WIDTH-CV 14.6 % (11.8-14.6); RBC DIS.WIDTH-SD 46.1 % (39-53); WHITE BLOOD COUNT 7.2 K/uL (4.1-10.2)
[2018-04-19 21:09] LABS: CHLORIDE 100 mEq/L (99-109); POTASSIUM 4.2 mEq/L (3.7-5.4); SODIUM 135 mEq/L (136-147)
[2018-04-19 21:10] LABS: MAGNESIUM 1.6 mg/dL (1.3-2.7)
[2018-04-19 21:11] LABS: GLUCOSE 141 mg/dL (70-99)
[2018-04-19 21:15] LABS: CREATININE 1.1 mg/dL (0.6-1.3); GFR ESTIMATE (CALCULATED) > 59 mL/min/ (58.99-99999)
[2018-04-19 21:16] LABS: UREA NITROGEN (BUN) 16 mg/dL (9-23)
[2018-04-19 21:17] LABS: CREATINE KINASE 80 IU/L (1-294)
[2018-04-19 21:21] LABS: TROP-I INTERPRETATION NEGATIVE; TROPONIN-I < 0.01 ng/mL (0.0-0.30)
[2018-04-20 04:15] LABS: TROP-I INTERPRETATION NEGATIVE; TROPONIN-I < 0.01 ng/mL (0.0-0.30)
[2018-04-20 07:14] VITALS: BP 120/58
[2018-04-20 07:45] LABS: THYROTROPIN (TSH) 1.1 MIU/L (0.4-5.5)
[2018-04-20 08:00] VITALS: BP 138/65
[2018-04-20 10:21] LABS: TROP-I INTERPRETATION NEGATIVE; TROPONIN-I < 0.01 ng/mL (0.0-0.30)
[2018-04-20 10:52] LABS: APPEARANCE SL.HAZY ((CLEAR)); BILIRUBIN NEGATIVE; BLOOD NEGATIVE; COLOR AMBER ((YELLOW)); GLUCOSE (STRIP) NEGATIVE; KETONES NEGATIVE; LEUKOCYTES NEGATIVE; NITRITE NEGATIVE; PROTEIN (STRIP) NEGATIVE
[2018-04-20 11:05] LABS: BACTERIA RARE /HPF; EPITHELIAL CELLS 2+ /HPF; MUCUS TRACE /LPF; RED BLOOD CELLS 0-5 /HPF (0-5); UCUL ADDED? YES
[2018-04-20 11:21] VITALS: BP 96/50
[2018-04-20 11:42] VITALS: BP 90/44
[2018-04-20 13:10] VITALS: BP 133/90
[2018-04-20 15:35] VITALS: BP 124/62
== END 2018-04-20 16:00 | disposition home or self-care (01) ==
LOC: EME 19:22 → EDOF 23:41 → ENRESERV 23:42 → 4SOUTH 04-20 00:40
PROVIDERS: Hospitalist; Physician Assistant
DX: R07.9 Chest pain, unspecified (principal); R53.1 Weakness; R61 Generalized hyperhidrosis; N39.0 Urinary tract infection, site not specified; R60.0 Localized edema; Z98.890 Other specified postprocedural states; Z79.02 Long term (current) use of antithrombotics/antiplatelets; Z79.01 Long term (current) use of anticoagulants; I25.10 Atherosclerotic heart disease of native coronary artery without angina pectoris; Z95.5 Presence of coronary angioplasty implant and graft; I69.351 Hemiplegia and hemiparesis following cerebral infarction affecting right dominant side; G89.29 Other chronic pain; M54.9 Dorsalgia, unspecified; J44.9 Chronic obstructive pulmonary disease, unspecified; E03.9 Hypothyroidism, unspecified; E78.5 Hyperlipidemia, unspecified; I10 Essential (primary) hypertension; E11.9 Type 2 diabetes mellitus without complications; Z87.891 Personal history of nicotine dependence; Z82.49 Family history of ischemic heart disease and other diseases of the circulatory system; Z83.3 Family history of diabetes mellitus; Z83.49 Family history of other endocrine, nutritional and metabolic diseases; Z80.1 Family history of malignant neoplasm of trachea, bronchus and lung; Z88.1 Allergy status to other antibiotic agents; Z88.2 Allergy status to sulfonamides; Z89.421 Acquired absence of other right toe(s); Z79.4 Long term (current) use of insulin
CPT/HCPCS: 71045; 80048; 81003; 82550; 82948; 83735; 84443; 84484; 85025; 87077; 87086; 87186; 93005; 99281; 99284; G0378; J1815; J7030; J7120